=== PATIENT | male | born 1950 | race Caucasian/White ===

== ENCOUNTER 2020-07-22 13:22 | Emergency (ER) | payer OTHER ==
[~2020-07-22] VITALS: Ht 188 cm; Wt 113.4 kg
[~2020-07-22 13:22] MED LIST: ASPI81CH PO; ATOR40TA PO; BASAGLAR K100 UNIT/1 SC; CARV25 PO; CEFD300 PO; Cardura Xl8 MG PO; DULOXETINE HCL60 M1 PO; FURO20 PO; GEMF600 PO; HYDR10 PO; INSULANPEN SC; LOSA50 PO; OMEP20ER PO
[2020-07-22 13:59] LABS: BASOPHILS ABSOLUTE AUTO 0.06 K/mm3 (0.00-0.23); BASOPHILS PERCENT AUTO 1 % (0-2); EOSINOPHILS ABSOLUTE AUTO 0.63 K/mm3 (0.00-0.68); EOSINOPHILS PERCENT AUTO 6 % (0-6); IMMATURE GRAN ABSOLUTE AUTO 0.05 K/mm3 (0.00-0.10); IMMATURE GRAN PERCENT AUTO 1 % (0-1); LYMPHOCYTES ABSOLUTE AUTO 2.68 K/mm3 (0.84-5.20); LYMPHOCYTES PERCENT AUTO 25 % (21-46); MONOCYTES ABSOLUTE AUTO 0.63 K/mm3 (0.16-1.47); MONOCYTES PERCENT AUTO 6 % (4-13); Mean Corpuscular HGB 29.8 pg (26.0-34.0); Mean Corpuscular HGB Conc 34.2 g/dL (31.5-36.5); Mean Corpuscular Volume 87 fL (80-100); Mean Platelet Volume 11.1 fL (9.1-12.4); NEUTROPHILS ABSOLUTE AUTO 6.53 K/mm3 (1.96-9.15); NEUTROPHILS PERCENT AUTO 62 % (41-73); Platelet Count 262 K/mm3 (150-400); RDW Coefficient Variation 12.9 % (11.7-14.2); RDW Standard Deviation 40.9 fL (35.1-46.3); Red Blood Cell Count 4.36 M/mm3 (4.30-5.90); White Blood Cell Count 10.58 K/mm3 (4.00-11.30)
[2020-07-22 14:34] LABS: Albumin, Blood 3.4 g/dL (3.4-5.0); Albumin/Globulin Ratio 0.9 (0.8-1.8); Bilirubin, Total 0.5 mg/dL (0.1-1.0); Bun/Creatinine Ratio 18.2 (12.0-20.0); Calcium, Blood 9.3 mg/dL (8.5-10.1); Creatinine, Blood 1.43 mg/dL (0.60-1.20); Globulin, Blood 3.9 g/dL (2.2-4.0); Potassium, Blood 4.4 mmol/L (3.5-5.5); Total Protein, Blood 7.3 g/dL (6.4-8.2); Troponin I 0.044 ng/mL (0.000-0.040)
[2020-07-22 16:51] LABS: Source, Urine Clean Catch
[2020-07-22 16:54] LABS: Appearance, Urine Clear (Clear); Bilirubin, Urine Neg (Neg); Blood, Urine Neg (Neg); Color, Urine Yellow (P-Yellow); Glucose Qualitative, Urine 4+ (Neg); Ketones, Urine Neg (Neg); Leukocyte Esterase, Urine Neg (Neg); Nitrite, Urine Neg (Neg); Protein, Urine 2+ (Neg); Urobilinogen, Urine NORM (Normal)
[2020-07-22 17:14] LABS: Bacteria Not Seen /hpf; Red Blood Cells, Urine Not Seen /hpf (0-2); Squamous Epithelial Cells Few /hpf (Few); White Blood Cells, Urine Not Seen /hpf (0-5)
[2020-07-22 17:31] LABS: Base Excess Venous 7.4 mmol/L; Bicarbonate Venous 28.7 mmol/L (24.0-30.0); PCO2 Venous 60.9 mmHg (38-42); PO2 Venous 39.7 mmHg (38-42); pH Blood Venous 7.34 (7.34-7.37)
[2020-07-22] MEDS ORDERED: NOVOLOG FL100 UNIT/3 SC (18:08)
== END 2020-07-22 19:05 | disposition home or self-care (01) ==
LOC: ER 13:22
PROVIDERS: Physician Assistant
DX: E11.65 Type 2 diabetes mellitus with hyperglycemia (principal); E11.22 Type 2 diabetes mellitus with diabetic chronic kidney disease; I12.9 Hypertensive chronic kidney disease with stage 1 through stage 4 chronic kidney disease, or unspecified chronic kidney disease; N18.9 Chronic kidney disease, unspecified; I25.10 Atherosclerotic heart disease of native coronary artery without angina pectoris; Z88.0 Allergy status to penicillin; Z88.8 Allergy status to other drugs, medicaments and biological substances; Z88.1 Allergy status to other antibiotic agents; Z79.4 Long term (current) use of insulin; Z79.899 Other long term (current) drug therapy; Z87.891 Personal history of nicotine dependence
CPT/HCPCS: 71046; 80053; 81001; 82803; 82947; 84484; 85025; 93005; 93010; 99285-25; J1815

== ENCOUNTER 2022-01-26 00:55 | Day surgery (SDC) | payer MEDICARE ==
[~2022-01-26 00:55] MED LIST changes: +NOVOLOG FL100 UNIT/3 SC
== END 2022-01-26 22:56 | disposition home or self-care (01) ==
LOC: WOUND 00:55
DX: E11.621 Type 2 diabetes mellitus with foot ulcer (principal); L97.512 Non-pressure chronic ulcer of other part of right foot with fat layer exposed; L89.893 Pressure ulcer of other site, stage 3; N18.9 Chronic kidney disease, unspecified; E11.22 Type 2 diabetes mellitus with diabetic chronic kidney disease; E11.59 Type 2 diabetes mellitus with other circulatory complications; E11.42 Type 2 diabetes mellitus with diabetic polyneuropathy; Z79.4 Long term (current) use of insulin
CPT/HCPCS: A9270

== ENCOUNTER 2022-02-26 01:47 | Day surgery (SDC) | payer MEDICARE | END 2022-02-26 22:53 | disposition home or self-care (01) | LOC: WOUND 01:47 | DX: E11.621 Type 2 diabetes mellitus with foot ulcer (principal); L97.512 Non-pressure chronic ulcer of other part of right foot with fat layer exposed; L89.893 Pressure ulcer of other site, stage 3; E11.59 Type 2 diabetes mellitus with other circulatory complications; E11.42 Type 2 diabetes mellitus with diabetic polyneuropathy; E11.22 Type 2 diabetes mellitus with diabetic chronic kidney disease; N18.9 Chronic kidney disease, unspecified; Z79.4 Long term (current) use of insulin | CPT/HCPCS: G0463 ==

== ENCOUNTER 2022-03-06 09:28 | Day surgery (SDC) | payer MEDICARE | END 2022-03-06 22:40 | disposition home or self-care (01) | LOC: WOUND 09:28 | DX: E11.621 Type 2 diabetes mellitus with foot ulcer (principal); L97.512 Non-pressure chronic ulcer of other part of right foot with fat layer exposed; E11.42 Type 2 diabetes mellitus with diabetic polyneuropathy; L89.893 Pressure ulcer of other site, stage 3; E11.22 Type 2 diabetes mellitus with diabetic chronic kidney disease; N18.9 Chronic kidney disease, unspecified; E11.59 Type 2 diabetes mellitus with other circulatory complications; Z79.4 Long term (current) use of insulin ==

== ENCOUNTER 2022-03-12 02:44 | Day surgery (SDC) | payer MEDICARE | END 2022-03-12 23:15 | disposition home or self-care (01) | LOC: WOUND 02:44 | DX: E11.621 Type 2 diabetes mellitus with foot ulcer (principal); L97.512 Non-pressure chronic ulcer of other part of right foot with fat layer exposed; L89.893 Pressure ulcer of other site, stage 3; E11.42 Type 2 diabetes mellitus with diabetic polyneuropathy; E11.59 Type 2 diabetes mellitus with other circulatory complications; N18.9 Chronic kidney disease, unspecified; E11.22 Type 2 diabetes mellitus with diabetic chronic kidney disease; Z79.4 Long term (current) use of insulin | CPT/HCPCS: G0463 ==

== ENCOUNTER 2022-04-03 04:00 | Day surgery (SDC) | payer MEDICARE ==
[2022-04-06] MEDS ORDERED: METFORMIN HCL500 M2 PO (14:17)
[2022-04-06] MEDS ORDERED: OZEMPIC1 MG/0.72 SQ (14:17)
[2022-04-06] MEDS ORDERED: FENOFIBRATE145 MG PO (14:17)
[2022-04-07] MEDS ORDERED: Isosorbide Mono30 MG PO (10:34)
== END 2022-04-03 23:03 | disposition home or self-care (01) ==
LOC: WOUND 04:00
DX: E11.621 Type 2 diabetes mellitus with foot ulcer (principal); L97.512 Non-pressure chronic ulcer of other part of right foot with fat layer exposed; E11.42 Type 2 diabetes mellitus with diabetic polyneuropathy; L89.893 Pressure ulcer of other site, stage 3; E11.22 Type 2 diabetes mellitus with diabetic chronic kidney disease; N18.9 Chronic kidney disease, unspecified; E11.59 Type 2 diabetes mellitus with other circulatory complications; Z79.4 Long term (current) use of insulin

== ENCOUNTER 2022-04-24 12:17 | Day surgery (SDC) | payer MEDICARE ==
[~2022-04-24 12:17] MED LIST changes: +FENOFIBRATE145 MG PO; +Isosorbide Mono30 MG PO; +METFORMIN HCL500 M2 PO; +OZEMPIC1 MG/0.72 SQ
== END 2022-04-24 22:55 | disposition home or self-care (01) ==
LOC: WOUND 12:17
DX: L89.893 Pressure ulcer of other site, stage 3 (principal); E11.621 Type 2 diabetes mellitus with foot ulcer; E11.42 Type 2 diabetes mellitus with diabetic polyneuropathy; Z79.4 Long term (current) use of insulin; E11.22 Type 2 diabetes mellitus with diabetic chronic kidney disease; N18.9 Chronic kidney disease, unspecified
CPT/HCPCS: G0463

== ENCOUNTER 2022-05-08 02:55 | Day surgery (SDC) | payer MEDICARE | END 2022-05-08 22:59 | disposition home or self-care (01) | LOC: WOUND 02:55 | DX: E11.621 Type 2 diabetes mellitus with foot ulcer (principal); L97.512 Non-pressure chronic ulcer of other part of right foot with fat layer exposed; I87.2 Venous insufficiency (chronic) (peripheral); Z79.4 Long term (current) use of insulin; N18.9 Chronic kidney disease, unspecified; E11.22 Type 2 diabetes mellitus with diabetic chronic kidney disease | CPT/HCPCS: A9270; G0463 ==

== ENCOUNTER 2022-05-15 02:07 | Day surgery (SDC) | payer MEDICARE | END 2022-05-15 22:41 | disposition home or self-care (01) | LOC: WOUND 02:07 | DX: E11.621 Type 2 diabetes mellitus with foot ulcer (principal); L97.512 Non-pressure chronic ulcer of other part of right foot with fat layer exposed; E11.40 Type 2 diabetes mellitus with diabetic neuropathy, unspecified; Z79.4 Long term (current) use of insulin; E11.22 Type 2 diabetes mellitus with diabetic chronic kidney disease; N18.9 Chronic kidney disease, unspecified | CPT/HCPCS: G0463 ==

== ENCOUNTER 2022-05-29 01:25 | Day surgery (SDC) | payer MEDICARE | END 2022-05-29 22:34 | disposition home or self-care (01) | LOC: WOUND 01:25 | DX: E11.621 Type 2 diabetes mellitus with foot ulcer (principal); E11.42 Type 2 diabetes mellitus with diabetic polyneuropathy; Z79.4 Long term (current) use of insulin; N18.9 Chronic kidney disease, unspecified; E11.22 Type 2 diabetes mellitus with diabetic chronic kidney disease; L97.512 Non-pressure chronic ulcer of other part of right foot with fat layer exposed | CPT/HCPCS: A9270; G0463 ==

== ENCOUNTER 2022-06-12 01:23 | Day surgery (SDC) | payer MEDICARE | END 2022-06-12 22:42 | disposition home or self-care (01) | LOC: WOUND 01:23 | DX: E11.621 Type 2 diabetes mellitus with foot ulcer (principal); L03.032 Cellulitis of left toe; S91.205A Unspecified open wound of left lesser toe(s) with damage to nail, initial encounter; E11.22 Type 2 diabetes mellitus with diabetic chronic kidney disease; N18.9 Chronic kidney disease, unspecified; E11.59 Type 2 diabetes mellitus with other circulatory complications | CPT/HCPCS: A9270 ==

== ENCOUNTER 2022-07-23 13:39 | Inpatient (IN) | payer MEDICARE, OTHER ==
[~2022-07-23] VITALS: Ht 188 cm; Wt 106.1 kg
[~2022-07-23 13:39] MED LIST changes: -ASPI81CH PO; +Aspir 8181 MG PO; -CARV25 PO; +Carvedilol12.5 MG PO; +METF500 PO; -METFORMIN HCL500 M2 PO
[2022-07-23 14:05] LABS: Calcium, Ionized (POC) 1.21 mmol/L (1.10-1.46); Chloride (POC) 99 mmol/L (98-108); Creatinine (POC) 1.5 mg/dL (0.8-1.3); Glucose (ISTAT POC) 353 mg/dL (70-99); Hemoglobin (POC) 13.9 g/dL (13.5-17.5); Potassium (POC) 4.7 mmol/L (3.5-5.5); Sodium (POC) 134 mmol/L (135-148); Total CO2 (POC) 25 mmol/L (21-32)
[2022-07-23 14:17] LABS: Albumin, Blood 3.3 g/dL (3.4-5.0); Albumin/Globulin Ratio 0.9 (0.8-1.8); Bilirubin, Total 0.5 mg/dL (0.1-1.0); Bun/Creatinine Ratio 18.7 (12.0-20.0); Calcium, Blood 9.3 mg/dL (8.5-10.1); Creatinine, Blood 1.39 mg/dL (0.60-1.20); Globulin, Blood 3.7 g/dL (2.2-4.0); Magnesium, Blood 2.3 mg/dL (1.6-2.4); Potassium, Blood 4.8 mmol/L (3.5-5.5)
[2022-07-23 14:33] LABS: BASOPHILS ABSOLUTE AUTO 0.12 K/mm3 (0.00-0.23); BASOPHILS PERCENT AUTO 1 % (0-2); EOSINOPHILS ABSOLUTE AUTO 0.69 K/mm3 (0.00-0.68); EOSINOPHILS PERCENT AUTO 8 % (0-6); Hematocrit 41.4 % (37.0-53.0); Hemoglobin 13.8 g/dL (13.5-17.5); IMMATURE GRAN ABSOLUTE AUTO 0.05 K/mm3 (0.00-0.10); IMMATURE GRAN PERCENT AUTO 1 % (0-1); LYMPHOCYTES ABSOLUTE AUTO 1.61 K/mm3 (0.84-5.20); LYMPHOCYTES PERCENT AUTO 18 % (21-46); MONOCYTES ABSOLUTE AUTO 0.57 K/mm3 (0.16-1.47); MONOCYTES PERCENT AUTO 6 % (4-13); Mean Corpuscular HGB 28.6 pg (26.0-34.0); Mean Corpuscular HGB Conc 33.3 g/dL (31.5-36.5); Mean Corpuscular Volume 86 fL (80-100); Mean Platelet Volume 11.4 fL (9.1-12.4); NEUTROPHILS ABSOLUTE AUTO 6.04 K/mm3 (1.96-9.15); NEUTROPHILS PERCENT AUTO 67 % (41-73); Platelet Count 268 K/mm3 (150-400); RDW Coefficient Variation 14.1 % (11.7-14.2); Red Blood Cell Count 4.82 M/mm3 (4.30-5.90); White Blood Cell Count 9.08 K/mm3 (4.00-11.30)
[2022-07-23 17:21] LABS: International Normalized Ratio 1.01; Prothrombin Time Results 10.6 Sec (9.7-11.5)
--- NOTE | 2022-07-23 18:40 | NUR ---
ADMIT NOTE PT TO ROOM AT APPROX 1706, 2 PERSON SBA TRANSFER TO BED. PT AND FAMILY ORIENTED TO ROOM AND CALL LIGHT. EDUCATED ON FALL RISK AND CALLING FOR ASSISTANCE. PT ALERT, ORIENTED TO x3, UNSURE OF DATE/TIME; CALM AND COOPERATIVE WITH CARE. PT FORGETFUL, FAMILY AT BEDSIDE STATES HE IS THE SAME AT HOME. PT DENIES PAIN, CHEST PAIN/PRESSURE, SOB, NASUEA, DIZZINESS AND NUMB/TINGLING. ORTHO STATIC VS COMPLETED. 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 CALLED DR GERONIMO REGARDING CBG 446, NO NEW ORDER CONTINUES WITH ORDERED INSULIN; TROP 65, NEW ORDERS TO D/C HEPARIN. SPO2>90% ON RA, BREATHING EVEN AND UNLABORED, PT NONCOMPLIANT AT HOME WITH CPAP, BELEIVES TO BE BROKEN. ABD SOFT NONTENDER, +BT X4 QUAD. SOFT, BROWN BM NOTED. SKIN WNL. OTHER VSS. NO ACUTE CHANGES NOTED. PT NPO AT MIDNIGHT, NO CAFFEINE OR NITRO AFTER 1900 FOR STRESS TEST TOMORROW.
[2022-07-23 19:51] LABS: Creatine Kinase MB 1.3 ng/mL (0.0-3.6); Creatine Kinase MB Index 2.7 (0.0-4.0)
[2022-07-23] MEDS ORDERED: KETO.5OPSO BOTHEYES (21:53)
[2022-07-23] MEDS ORDERED: Floxin10 ML BOTHEYES (21:55)
[2022-07-23] MEDS ORDERED: PRED FORTE5 ML BOTHEYES (21:56)
[2022-07-23] MEDS ORDERED: INSULANPEN SC (22:03)
[2022-07-23] MEDS ORDERED: NOVOLOG FL100 UNIT/3 SC (22:07)
[2022-07-23] MEDS ORDERED: THERA-D2000 UNIT PO (22:10)
[2022-07-23] MEDS ORDERED: LOSA50 PO (22:20)
[2022-07-23] MEDS ORDERED: GABA300 PO (22:22)
--- NOTE | 2022-07-24 01:24 | NUR ---
PHYSICIAN COMMUNICATION CONTACTED PHARMACY INTAKE TECHNICIAN RESIDENT, DR SANCHEZ, TO NOTIFY HER THAT THE PATIENT'S MOST RECENT BLOOD PRESSURE WAS 171/72 AND WAS PREVIOUSLY IN THE 160'S SYSTOLIC. NOTIFIED HER THAT THE PATIENT HASN'T BEEN STARTED ON ANTIHYPERTENSIVES DURING THIS HOSPITAL COURSE AND RELAYED WHAT HIS HOME MEDICATIONS WERE. DR SANCHEZ ORDERED 10-20 MG IV HYDRALAZINE EVERY 6 HOURS NEEDED FOR SBP GREATER THAN 170.
[2022-07-24 01:59] LABS: Hematocrit 38.8 % (37.0-53.0); Hemoglobin 13.4 g/dL (13.5-17.5); Mean Corpuscular HGB 28.9 pg (26.0-34.0); Mean Corpuscular HGB Conc 34.5 g/dL (31.5-36.5); Mean Corpuscular Volume 84 fL (80-100); Platelet Count 228 K/mm3 (150-400); RDW Coefficient Variation 14.2 % (11.7-14.2); Red Blood Cell Count 4.63 M/mm3 (4.30-5.90); White Blood Cell Count 8.96 K/mm3 (4.00-11.30)
[2022-07-24 02:13] LABS: Anion Gap 4 mmol/L (6-16); Blood Urea Nitrogen 26 mg/dL (8-24); Bun/Creatinine Ratio 19.5 (12.0-20.0); CHOL/HDL RATIO 3.3; CO2, Blood 30 mmol/L (21-32); CPK Creatine Kinase 60 U/L (39-308); Calcium, Blood 9.3 mg/dL (8.5-10.1); Chloride, Blood 106 mmol/L (98-108); Cholesterol 133 mg/dL (50-200); Creatine Kinase MB 1.5 ng/mL (0.0-3.6); Creatine Kinase MB Index 2.5 (0.0-4.0); Creatinine, Blood 1.33 mg/dL (0.60-1.20); Glomerular Filtration Rate 56 (60-); Glucose, Blood 139 mg/dL (70-99); HDL Cholesterol 40 mg/dL (>39); LDL/HDL RATIO 1.7; Low Density Lipoprotein Chol 70 mg/dL (0-110); Magnesium, Blood 2.1 mg/dL (1.6-2.4); Phosphorus, Blood 3.7 mg/dL (2.5-4.9); Potassium, Blood 3.8 mmol/L (3.5-5.5); Sodium, Blood 140 mmol/L (136-145); Triglycerides 117 mg/dL (30-160); Very Low Density Lipoprot Chol 23 mg/dL (6-32)
--- NOTE | 2022-07-24 06:33 | NUR ---
SHIFT SUMMARY PATIENT ALERT AND ORIENTED X2-3. FORGETFUL, PLEASANTLY CONFUSED, AND REDIRECTABLE. PATIENT HAD NO COMPLAINTS OF PAIN OR SHORTNESS OF BREATH. VITAL SIGNS STABLE. LUNG SOUNDS CLEAR. PATIENT SINUS RHYTHM ON TELE. SPO2 >90% ON ROOM AIR. NO ACUTE ISSUES NOTED OVERNIGHT. CALL LIGHT WITHIN REACH.
--- NOTE | 2022-07-24 07:57 | NUR ---
AM NOTE PT ALERT, ORIENTED X3; UNSURE OF DATE. PT HAD AN EPISODE OF CONFUSION THIS AM, ATTEMPTING TO GET OUT OF BED, STATING HE WAS GOING HOME, REORIENTED EASILY. PT UP WITH 1 PERSON ASSIST AND WALKER. PT DENIES PAIN, CHEST PAIN/PRESSURE, SOB, NASUEA, AND NUMB/TINGLING. ORTHO VS COMPLETED, PT DIZZY WITH INITIALLY SITTING UP AND STANDING, THEN DIZZY WITH RETIREMENT STANDING AND NEEDING TO SIT DOWN, BP DROPPED FROM 140'S SYSTOLIC TO 90'S WHILE STANDING. TELE SINUS 60-80'S. SPO2 >90% ON RA, BREATHING EVEN AND UNLABORED. ABD SOFT, NONTENDER. PT REQUESTING HAND IV TO BE TAKEN OUT, PLACED NEW ONE. OTHER VSS. NO OTHER ACUTE CHANGES NOTED. WILL CONTINUE TO MONITOR.
--- NOTE | 2022-07-24 18:24 | NUR ---
Shift Summary No acute changes t/o shift, pt completed stress test this afternoon. New cardiology consult called in . Vss. No other acute changes noted. Will continue to monitor.
--- NOTE | 2022-07-25 04:48 | NUR ---
SHIFT SUMMARY A&Ox2-3, PT KNOWS HE IS IN [place] BUT UNSURE OF WHICH BUILDING. BP ELEVATED, MANAGED PER EMAR, SINUS 70's, DENIES CP/PRESSURE. SpO2> 92% RA, DENIES SOB. PT 1 PERSON ASSIST WITH FWW TO BATHROOM. CONTINENT OF URINE, NO BM THIS SHIFT. PT RESTED COMFORTABLY THROUGHOUT SHIFT. NO OTHER EVENTS, WILL REPORT TO COMING RN.
--- NOTE | 2022-07-25 17:59 | NUR ---
SHIFT SUMMARY; ASSUMED CARE AT 0700, A/A/OX3 WITH INTERMITANT CONFUSION. REPOSITIONS SELF IN BED, SBA TO BATHROOM IN AM PRE PROCEDURE. ANGIO TODAY, TR BAND TO LEFT WRIST. REMOVED BAND PER PROTOCOL. RADIAL PALPABLE WITH CAP REFILL <3 SECS DURING TR BAND RECOVERY. LEFT ARM BOARD IN PLACE. HYPTENSIVE IN AM, MEDICATED PER DR. TONG. USING URINAL AT BEDSIDE AFTER ANGIO WITH ASSISTANCE. CONFUSION INCREASED IN EVENING, DIFFICULT AT TIMES TO REDIRECT. STATES IS SAME AT HOME IN EVENING AND HAS SHOWN RECENT SIGNS OF DEMENTIA. INSULIN HELD DURING SHIFT PT HAS BEEN NPO T/O DAY. MEAL OFFERED TONIGHT AND DECLINED. VSS, WILL CONTINUE TO MONITOR AND TREAT UNTIL CHANGE OF SHIFT.
--- NOTE | 2022-07-26 07:31 | NUR ---
SHIFT SUMMARY A&Ox2, AT START OF SHIFT PT SET BED ALARM OFF TO USE BATHROOM, PT ABLE TO STATE WHAT HE WAS IN [place], THOUGH WAS DIFFICULT TO DIRECT WHEN WALKING TO BATHROOM. SHIFT PROGRESSED, PT BECAME INCREASINGLY LETHARGIC AND NOT FOLLOWING DIRECTIONS. PHYSICIAN NOTIFIED, ORDERS PLACE. PUPILS EQUAL AND REACTIVE TO LIGHT. BP ELEVATED, PHYSICIAN NOTIFIED, ORDERS PLACED, MANAGED PER EMAR, SINUS 90-100's, DENIES CP/PRESSURE. SpO2> 92% RA, DENIES SOB. PT INCONTINENT OF URINE, NO BM THIS SHIFT. NO OTHER EVENTS, WILL REPORT TO COMING RN.
--- NOTE | 2022-07-26 12:45 | NUR ---
PTS DAUGHTER AT BEDSIDE AND WAS ASKING FOR A PILLOW TO PUT BETWEEN HER FATHER KNEES. I GOT A PILLOW AND ASSISTED HER WITH THIS. UPON GETTING CLOSER TO PTS FACE, IT WAS NOTED THAT HE NEEDED ORAL CARE A CRUST HAD BUILT UP ON HIS TONGUE AND HIS DAUGHTER MENTIONED A FOUL ODOR COMING FROM HIS MOUTH. I SET UP SUCTION AND CLEANED HIS MOUTH MULTIPLE TIMES WITH SUCTION SWABS, AND MOUTH MOISTURIZER. PTS FAMILY VERY GRATEFUL AND MENTIONED PT LOOKS MUCH MORE COMFORTABLE. THIS WILL BE PASSED ON TO PTS PRIMARY RN AND CARDIOTHORACIC ICU RN
[2022-07-26 13:49] LABS: BASOPHILS ABSOLUTE AUTO 0.03 K/mm3 (0.00-0.23); BASOPHILS PERCENT AUTO 0 % (0-2); EOSINOPHILS PERCENT AUTO 0 % (0-6); Hematocrit 38.7 % (37.0-53.0); Hemoglobin 13.6 g/dL (13.5-17.5); IMMATURE GRAN ABSOLUTE AUTO 0.04 K/mm3 (0.00-0.10); IMMATURE GRAN PERCENT AUTO 0 % (0-1); LYMPHOCYTES PERCENT AUTO 13 % (21-46); MONOCYTES ABSOLUTE AUTO 0.92 K/mm3 (0.16-1.47); MONOCYTES PERCENT AUTO 7 % (4-13); Mean Corpuscular HGB 28.9 pg (26.0-34.0); Mean Corpuscular HGB Conc 35.1 g/dL (31.5-36.5); Mean Corpuscular Volume 82 fL (80-100); Mean Platelet Volume 10.7 fL (9.1-12.4); NEUTROPHILS ABSOLUTE AUTO 9.83 K/mm3 (1.96-9.15); NEUTROPHILS PERCENT AUTO 79 % (41-73); Platelet Count 302 K/mm3 (150-400); RDW Coefficient Variation 14.5 % (11.7-14.2); RDW Standard Deviation 43.1 fL (35.1-46.3); White Blood Cell Count 12.42 K/mm3 (4.00-11.30)
[2022-07-26 16:45] LABS: PCO2 Arterial 34.9 mmHg (35-45); PO2 Arterial 75.3 mmHg (80-100); pH Blood Arterial 7.47 (7.35-7.45)
[2022-07-26 17:17] LABS: Albumin, Blood 3.3 g/dL (3.4-5.0); Anion Gap 10 mmol/L (6-16); Blood Urea Nitrogen 18 mg/dL (8-24); CO2, Blood 21 mmol/L (21-32); Calcium, Blood 9.2 mg/dL (8.5-10.1); Chloride, Blood 104 mmol/L (98-108); Creatinine, Blood 1.06 mg/dL (0.60-1.20); Glomerular Filtration Rate 74 (60-); Glucose, Blood 255 mg/dL (70-99); Phosphorus, Blood 3.3 mg/dL (2.5-4.9); Potassium, Blood 4.1 mmol/L (3.5-5.5); Sodium, Blood 135 mmol/L (136-145)
--- NOTE | 2022-07-26 18:05 | NUR ---
SHIFT SUMMARY; ASSUMED CARE AT 0700. LETHARGIC AND SLEEPING T/O SHIFT. DIFFICULT TO WAKE. OPENS EYES TO VERBAL STIMULI BUT DOES NOT ANSWER QUESTIONS AND QUICKLY FALLS BACK ASLEEP. REPOSITIONS SELF IN BED. INCONTINANT DURING SHIFT SEVERAL TIMES WITH TJ CARE AND ATTENDS CHANGES PROVIDED. LEFT ARM BOARD IN PLACE FROM ANGIO YESTERDAY. SITE DRY AND NO SWELLING OR BRUISING, TEGADERM IN PLACE. INSULIN PER EMAR. FAMILY AT BEDSIDE MOST OF DAY, CONCERNED REGARDING CHANGE IN MENTATION FROM BASELINE. DR. GERONIMO SPOKE WITH FAMILY. MRI ORDERED. MRI SCREENING FAXED TO RADIOLOGY. NS INFUSING AT 100ML/HR PER ORDERS, WILL CONTINUE TO MONITOR AND TREAT UNTIL CHANGE OF SHIFT.
[2022-07-26 19:03] LABS: Source, Urine Clean Catch
[2022-07-26 19:06] LABS: Appearance, Urine Clear (Clear); Bilirubin, Urine Neg (Neg); Blood, Urine 2+ (Neg); Color, Urine Yellow (P-Yellow); Glucose Qualitative, Urine 4+ (Neg); Ketones, Urine 2+ (Neg); Leukocyte Esterase, Urine Neg (Neg); Nitrite, Urine Neg (Neg); Protein, Urine 3+ (Neg); Urobilinogen, Urine NORM (Normal)
[2022-07-26 19:49] LABS: Bacteria Few /hpf; Squamous Epithelial Cells Rare /hpf (Few); White Blood Cells, Urine 0-2 /hpf (0-5)
--- NOTE | 2022-07-26 20:00 | NUR ---
ASSUMED CARE. PT OPENS EYES TO VERBAL STIMULI, DOES NOT ANSWER ANY ORIENTATION QUESTIONS. JUST SAYS YES AND NO TO PAIN QUESTION OR OTHER ASSESSMENT QUESTIONS. VERY FEW ANSWERS AND THEN FALLS BACK TO SLEEP. ALLOWS ASSESSMENT TO OCCUR THEN ASKED TO BE LEFT ALONE. LS CLEAR, SATS >90%. UNKNOWN IF HE HAS CHEST PAIN, WOULD NOT ANSWER. HR NORMAL S1-S2. PULSES STRONG. CAP REFILL NORMAL. HR 70-80'S. CONDOM CATH IN PLACE, YELLOW URINE SMALL AMOUNT IN TUBING. ATTENDS DRY. ABD HYPOACTIVE CT. SKIN WITH DRY FLACKY SKIN, REDNESS TO COCCYX, BLANCHABLE. BED ALARM IS ON, LOUISA IN PLACE.
--- NOTE | 2022-07-26 22:46 | NUR ---
PT PULLED OFF CONDOM CATH. ATTENDS WET AND BED HAD SMALL AREA OF WETNESS, PATIENT WAS DIFFICULT TO GET TO FOLLOW COMMANDS, WOULD NOT ALLOW SHEET TO BE CHANGED. CONTINUED TO YELL OUT "LEAVE ME ALONE", FINALLY GOT HIM TO ALLOW ME TO PLACE CLEAN ATTENDS AND PAD UNDERNEATH HIM SO HE WOULD NOT BE LAYING ON WETNESS. BOOSTED IN BED. LOUISA IN PLACE.
[2022-07-27 04:47] LABS: Hematocrit 37.6 % (37.0-53.0); Hemoglobin 12.8 g/dL (13.5-17.5); Mean Corpuscular HGB 28.8 pg (26.0-34.0); Mean Corpuscular Volume 85 fL (80-100); Mean Platelet Volume 10.9 fL (9.1-12.4); Platelet Count 254 K/mm3 (150-400); RDW Coefficient Variation 14.5 % (11.7-14.2); RDW Standard Deviation 44.7 fL (35.1-46.3); Red Blood Cell Count 4.44 M/mm3 (4.30-5.90); White Blood Cell Count 11.39 K/mm3 (4.00-11.30)
[2022-07-27 05:34] LABS: Albumin, Blood 2.9 g/dL (3.4-5.0); Anion Gap 4 mmol/L (6-16); Blood Urea Nitrogen 26 mg/dL (8-24); Bun/Creatinine Ratio 21.5 (12.0-20.0); CO2, Blood 26 mmol/L (21-32); Chloride, Blood 109 mmol/L (98-108); Creatinine, Blood 1.21 mg/dL (0.60-1.20); Glomerular Filtration Rate 63 (60-); Glucose, Blood 192 mg/dL (70-99); Phosphorus, Blood 2.7 mg/dL (2.5-4.9); Potassium, Blood 3.4 mmol/L (3.5-5.5); Sodium, Blood 139 mmol/L (136-145)
--- NOTE | 2022-07-27 05:59 | NUR ---
SHIFT SUMMARY: PT REMAINS LETHARGIC, WILL OPEN EYES TO VERBAL STIMULI BUT TENDS TO FALL BACK TO SLEEP. DOES NOT LIKE TO BE MESSED WITH, WILL YELL OUT "LEAVE ME ALONE", GETS VERY IRRITABLE. REMAINS IN LOUISA VEST FOR SAFETY. IVF COMPLETED. POTASSIUM SLIGHTLY LOW THIS AM 3.4, REPORTED TO DR. SANCHEZ, NO ORDERS OBTAINED. VS REMAINED WNL. BED ALARM ON, AND CALL LIGHT IS IN REACH.
--- NOTE | 2022-07-27 18:15 | NUR ---
SHIFT SUMMARY PT A/Ox2-3 AND COOPERATIVE OF CARE. PT LETHARGIC AT SHIFT CHANGE WITH DAUGHTER PRESENT IN ROOM. LOUISA JOHNSTON DC'D AT SHIFT CHANGE. PT ANWERED SOME ORIENTATION QUESTION IF DAUGHTER REPEATED THEM TO PT DURING MORNING ASSESSMENT. AROUND 0900, PT RECIEVED FULL BED BATH WHICH SEEMED TO MAKE PT MORE ALERT. AFTER BED BATH PT ABLE TO ANSWER SOME ORIENTATION QUESTIONS APPROPIATELY, SOME OF THE QUESTIONS THE PT PAUSED FOR 15-20 SECONDS BEFORE BEING ABLE TO ANSWER THE QUESTION. PT VSS THROUGHOUT SHIFT WITH 02 SATS >97% ON RA. NO REPORT OF CHEST PAIN/PRESSURE THROUGHOUT SHIFT. NO REPORT OF SOB/DYSPNEA THROUGHOUT SHIFT. PT SEEN BY PT/OT, SEE PT/OT ASSESSMENT NOTES. PT DID SET OF BED ALARM ONCE HE WAS TRYING TO CLIMB OUT OF BE TO "GO TO THE BATHROOM." PT REMINDED THAT HE IS A FALL RISK AND STAFF HELPED PT USE URINAL IN THE BED. CARE MANAGEMENT ON BOARD FOR HOME HEALTH ASSISTANCE AND [facility] WITH [facility].
--- NOTE | 2022-07-28 05:58 | NUR ---
PHOTO PRODUCER SUMMARY ASSUMED CARE OF THE PT AT 1900. HE WAS LETHARGIC AT THE START OF SHIFT, UNABLE TO PERFORM FULL ASSESSMENT PT NOT AWAKE LONG ENOUGH TO ANSWER QUESTIONS. PT DOES GET UP ONCE DURING THE NIGHT TO USE THE URINAL. ABLE TO STAND WITH WALKER WHILE STAFF ASSIST WITH URINAL. VSS. PT APPEARS MORE ALERT THIS MORNING BUT STILL DOES NOT KNOW WHERE HE IS, WHAT MONTH OR YEAR IT IS, AND HIS FULL BIRTHDATE. PT VERY PLEASANT. NO CHEST PAIN OR SHORTNESS OF BREATH THIS SHIFT. POSSIBLE DISCHARGE HOME TODAY.
[2022-07-28 07:54] LABS: Albumin, Blood 2.7 g/dL (3.4-5.0); Anion Gap 6 mmol/L (6-16); Blood Urea Nitrogen 26 mg/dL (8-24); Bun/Creatinine Ratio 21.7 (12.0-20.0); CO2, Blood 25 mmol/L (21-32); Calcium, Blood 8.8 mg/dL (8.5-10.1); Chloride, Blood 111 mmol/L (98-108); Glomerular Filtration Rate 63 (60-); Glucose, Blood 137 mg/dL (70-99); Potassium, Blood 3.7 mmol/L (3.5-5.5); Sodium, Blood 142 mmol/L (136-145)
[2022-07-28 08:29] LABS: BASOPHILS ABSOLUTE AUTO 0.09 K/mm3 (0.00-0.23); BASOPHILS PERCENT AUTO 1 % (0-2); EOSINOPHILS ABSOLUTE AUTO 0.34 K/mm3 (0.00-0.68); EOSINOPHILS PERCENT AUTO 4 % (0-6); Hematocrit 38.9 % (37.0-53.0); Hemoglobin 13.1 g/dL (13.5-17.5); IMMATURE GRAN ABSOLUTE AUTO 0.02 K/mm3 (0.00-0.10); IMMATURE GRAN PERCENT AUTO 0 % (0-1); LYMPHOCYTES PERCENT AUTO 26 % (21-46); MONOCYTES ABSOLUTE AUTO 0.88 K/mm3 (0.16-1.47); MONOCYTES PERCENT AUTO 10 % (4-13); Mean Corpuscular HGB Conc 33.7 g/dL (31.5-36.5); Mean Corpuscular Volume 86 fL (80-100); Mean Platelet Volume 10.8 fL (9.1-12.4); NEUTROPHILS ABSOLUTE AUTO 5.12 K/mm3 (1.96-9.15); NEUTROPHILS PERCENT AUTO 59 % (41-73); Platelet Count 208 K/mm3 (150-400); RDW Coefficient Variation 14.6 % (11.7-14.2); RDW Standard Deviation 45.8 fL (35.1-46.3); Red Blood Cell Count 4.52 M/mm3 (4.30-5.90); White Blood Cell Count 8.75 K/mm3 (4.00-11.30)
--- NOTE | 2022-07-28 11:18 | NUR ---
ORTHOSTATIC BLOOD PRESSURES: PATIENT IN ACUTE DISTRESS. DENIES DIZZINESS/LIGHTHEADEDNESS. NO SYNCOPAL EPISODE. PATIENT WAS LAYING FOR MORE THAN 5 MINUTES. ON INTITIAL READ. [id number] LAY TO [id number] SIT TO [id number]
[2022-07-28] MEDS ORDERED: CLOP75 PO (11:56)
[2022-07-28] MEDS ORDERED: QUET25 PO (11:57)
[2022-07-28] MEDS ORDERED: MIRALAX17 GM PO (11:57)
--- NOTE | 2022-07-28 14:08 | NUR ---
DISCHARGE SUMMARY: PATIENT AND FAMILY PRESENT FOR DISCHARGE WITH APPROXIMATELY 45-60MINUTES OF EDUCATION ON MEDICATIONS CURRENT ILLNESS AND DISCHARGE INSTRUCTIONS. PATIENT AND FAMILY HAVE FIRM UNDERSTANDING OF THE SITUATION AND WILL CONTINUE MEDICATION PER MED REC. PATIENT IN NO SIGN OF DISTRESS, DENIES CHEST PAIN PRESSURE OR SOB AT THIS TIME. PATIENT AND FAMILY HAD NO FURTHER QUESTIONS AND UNDERSTOOD ALL INSTRUCTIONS. PATIENT WAS WHEELED OUT BY THIS RN. NO CONCERNS QUESTIONS OR COMMENTS.
== END 2022-07-28 13:15 | disposition home health service (06) | DRG 286 ==
LOC: ER 13:39 → PCU 13:40
PROVIDERS: Student in an Organized Health Care Education/Training Program; ADMIT Internal Medicine
PROC: B211YZZ Fluoroscopy of Multiple Coronary Arteries using Other Contrast (ICD-10-PCS; principal; 2022-07-25)
PROC: B218YZZ Fluoroscopy of Left Internal Mammary Bypass Graft using Other Contrast (ICD-10-PCS; 2022-07-25)
PROC: B21FYZZ Fluoroscopy of Other Bypass Graft using Other Contrast (ICD-10-PCS; 2022-07-25)
PROC: B240ZZ3 Ultrasonography of Single Coronary Artery, Intravascular (ICD-10-PCS; 2022-07-25)
PROC: 4A133R1 Monitoring of Arterial Saturation, Peripheral, Percutaneous Approach (ICD-10-PCS; 2022-07-25)
DX: I95.1 Orthostatic hypotension (principal); G92.8 Other toxic encephalopathy; E87.1 Hypo-osmolality and hyponatremia; N17.9 Acute kidney failure, unspecified; F03.918 Unspecified dementia, unspecified severity, with other behavioral disturbance; I25.10 Atherosclerotic heart disease of native coronary artery without angina pectoris; E87.6 Hypokalemia; N18.30 Chronic kidney disease, stage 3 unspecified; E11.22 Type 2 diabetes mellitus with diabetic chronic kidney disease; G47.33 Obstructive sleep apnea (adult) (pediatric); G47.00 Insomnia, unspecified; E78.5 Hyperlipidemia, unspecified; E11.42 Type 2 diabetes mellitus with diabetic polyneuropathy; I12.9 Hypertensive chronic kidney disease with stage 1 through stage 4 chronic kidney disease, or unspecified chronic kidney disease; K21.9 Gastro-esophageal reflux disease without esophagitis; L97.519 Non-pressure chronic ulcer of other part of right foot with unspecified severity; E11.621 Type 2 diabetes mellitus with foot ulcer; R94.39 Abnormal result of other cardiovascular function study; F80.9 Developmental disorder of speech and language, unspecified; Z91.199 Patient's noncompliance with other medical treatment and regimen due to unspecified reason; Z98.890 Other specified postprocedural states; Z87.891 Personal history of nicotine dependence; Z98.42 Cataract extraction status, left eye; Z98.41 Cataract extraction status, right eye; Z95.1 Presence of aortocoronary bypass graft; Z78.1 Physical restraint status; Z88.0 Allergy status to penicillin; Z88.1 Allergy status to other antibiotic agents; Z88.2 Allergy status to sulfonamides; Z88.8 Allergy status to other drugs, medicaments and biological substances; Z79.899 Other long term (current) drug therapy; Z79.01 Long term (current) use of anticoagulants; Z79.4 Long term (current) use of insulin; Z79.82 Long term (current) use of aspirin; Z79.02 Long term (current) use of antithrombotics/antiplatelets; Z79.84 Long term (current) use of oral hypoglycemic drugs
CPT/HCPCS: 36415; 36600; 70450; 76937; 78452; 80047; 80048; 80053; 80061; 80069; 81001; 82550; 82553; 82803; 82947; 83036; 83735; 84100; 84484; 85014; 85025; 85027; 85520; 85610; 85730; 93005; 93010; 93017; 93455; 96360; 96361; 96372; 96374; 96375; 97110; 97116; 97162; 97166; 97535; 99152; 99153; 99285-25; A9270; A9500; C1751; C1769; C1894; G0378; J0360; J1644; J1650; J1815; J2250; J2785; J3010; J3480; J7030; J7050; Q9967

== ENCOUNTER 2022-08-21 12:24 | Day surgery (SDC) | payer OTHER ==
[~2022-08-21] VITALS: Ht 188 cm; Wt 110.6 kg
[~2022-08-21 12:24] MED LIST changes: +CLOP75 PO; +Floxin10 ML BOTHEYES; +GABA300 PO; +KETO.5OPSO BOTHEYES; +MIRALAX17 GM PO; +PRED FORTE5 ML BOTHEYES; +QUET25 PO; +THERA-D2000 UNIT PO
--- NOTE | 2022-08-21 13:17 | NUR ---
08/21/22 1317 Zamzam Palumbo CALL LIGHT WITHIN REACH. RODOLFOIN IN RIGHT EYE AT 1310 AND SHUBHAM IN AT 1311
== END 2022-08-21 14:44 | disposition home or self-care (01) ==
LOC: ORSCSDS 12:24
PROVIDERS: Ophthalmology
PROC: 08RJ3JZ Replacement of Right Lens with Synthetic Substitute, Percutaneous Approach (ICD-10-PCS; principal; 2022-08-21 14:00)
DX: H25.11 Age-related nuclear cataract, right eye (principal); E11.36 Type 2 diabetes mellitus with diabetic cataract; G47.33 Obstructive sleep apnea (adult) (pediatric); I10 Essential (primary) hypertension; E11.40 Type 2 diabetes mellitus with diabetic neuropathy, unspecified; Z79.4 Long term (current) use of insulin; I25.10 Atherosclerotic heart disease of native coronary artery without angina pectoris; Z79.02 Long term (current) use of antithrombotics/antiplatelets; Z79.899 Other long term (current) drug therapy
CPT/HCPCS: 82947; J2001; J2250; J3010; J3301; J7040; V2632

== ENCOUNTER 2024-02-18 22:04 | Inpatient (IN) | payer OTHER, MEDICARE ==
[~2024-02-18] VITALS: Ht 188 cm; Wt 101.9 kg
[~2024-02-18 22:04] MED LIST changes: +CLIN300 PO
[2024-02-18 22:37] LABS: BASOPHILS ABSOLUTE AUTO 0.06 K/mm3 (0.00-0.23); BASOPHILS PERCENT AUTO 1 % (0-2); EOSINOPHILS ABSOLUTE AUTO 0.26 K/mm3 (0.00-0.68); EOSINOPHILS PERCENT AUTO 2 % (0-6); Hematocrit 32.2 % (37.0-53.0); Hemoglobin 10.4 g/dL (13.5-17.5); IMMATURE GRAN ABSOLUTE AUTO 0.05 K/mm3 (0.00-0.10); IMMATURE GRAN PERCENT AUTO 0 % (0-1); LYMPHOCYTES PERCENT AUTO 11 % (21-46); MONOCYTES ABSOLUTE AUTO 1.21 K/mm3 (0.16-1.47); MONOCYTES PERCENT AUTO 9 % (4-13); Mean Corpuscular HGB 29.2 pg (26.0-34.0); Mean Corpuscular HGB Conc 32.3 g/dL (31.5-36.5); Mean Corpuscular Volume 90 fL (80-100); Mean Platelet Volume 10.8 fL (9.1-12.4); NEUTROPHILS ABSOLUTE AUTO 9.93 K/mm3 (1.96-9.15); NEUTROPHILS PERCENT AUTO 77 % (41-73); Platelet Count 288 K/mm3 (150-400); RDW Coefficient Variation 13.8 % (11.7-14.2); RDW Standard Deviation 45.5 fL (35.1-46.3); Red Blood Cell Count 3.56 M/mm3 (4.30-5.90); White Blood Cell Count 12.91 K/mm3 (4.00-11.30)
[2024-02-18 22:54] LABS: Albumin, Blood 2.2 g/dL (3.4-5.0); Albumin/Globulin Ratio 0.5 (0.8-1.8); Bilirubin, Total 0.8 mg/dL (0.1-1.0); Bun/Creatinine Ratio 21.1 (12.0-20.0); Calcium, Blood 8.9 mg/dL (8.5-10.1); Creatinine, Blood 1.28 mg/dL (0.60-1.20); Globulin, Blood 4.5 g/dL (2.2-4.0); Potassium, Blood 4.2 mmol/L (3.5-5.5); Total Protein, Blood 6.7 g/dL (6.4-8.2)
[2024-02-19] VITALS (14 sets, daily range): BP systolic 104–141; BP diastolic 50–78
[2024-02-19] MEDS ORDERED: Ciprofloxacin 400MG/D5 200ML 200 ML IV ONE (03:25)
[2024-02-19] MEDS ORDERED: Vancomycin HCL 2,000 MG in NS 500 ML IV ONE (03:35)
[2024-02-19] MEDS ORDERED: FLU VACC TS2024-25(6MOS UP)/PF 45 MCG/0.5 ML SYRINGE IM SCH (04:35)
[2024-02-19] MEDS ORDERED: Magnesium Hydroxide Conc 10 ML UDC PO PRN (04:35)
[2024-02-19] MEDS ORDERED: Acetaminophen 325 MG TABLET PO PRN (04:40)
[2024-02-19] MEDS ORDERED: Bisacodyl 10 MG Supp PR PRN (04:40)
[2024-02-19 05:08] LABS: BASOPHILS ABSOLUTE AUTO 0.07 K/mm3 (0.00-0.23); BASOPHILS PERCENT AUTO 1 % (0-2); EOSINOPHILS ABSOLUTE AUTO 0.12 K/mm3 (0.00-0.68); EOSINOPHILS PERCENT AUTO 1 % (0-6); Hematocrit 28.9 % (37.0-53.0); Hemoglobin 9.3 g/dL (13.5-17.5); IMMATURE GRAN ABSOLUTE AUTO 0.06 K/mm3 (0.00-0.10); IMMATURE GRAN PERCENT AUTO 0 % (0-1); LYMPHOCYTES ABSOLUTE AUTO 1.11 K/mm3 (0.84-5.20); LYMPHOCYTES PERCENT AUTO 8 % (21-46); MONOCYTES ABSOLUTE AUTO 1.44 K/mm3 (0.16-1.47); MONOCYTES PERCENT AUTO 10 % (4-13); Mean Corpuscular HGB 29.2 pg (26.0-34.0); Mean Corpuscular HGB Conc 32.2 g/dL (31.5-36.5); Mean Corpuscular Volume 91 fL (80-100); NEUTROPHILS ABSOLUTE AUTO 11.77 K/mm3 (1.96-9.15); NEUTROPHILS PERCENT AUTO 81 % (41-73); Platelet Count 237 K/mm3 (150-400); RDW Coefficient Variation 13.8 % (11.7-14.2); RDW Standard Deviation 45.9 fL (35.1-46.3); Red Blood Cell Count 3.19 M/mm3 (4.30-5.90); White Blood Cell Count 14.57 K/mm3 (4.00-11.30)
[2024-02-19] MEDS ORDERED: Clindamycin 600mg in D5W 50 ML IV SCH (05:26)
[2024-02-19 05:27] LABS: Anion Gap 14 mmol/L (3-11); Blood Urea Nitrogen 31 mg/dL (8-24); Bun/Creatinine Ratio 21.2 (12.0-20.0); CO2, Blood 21 mmol/L (21-32); Calcium, Blood 8.3 mg/dL (8.5-10.1); Chloride, Blood 107 mmol/L (98-108); Creatinine, Blood 1.46 mg/dL (0.60-1.20); Glomerular Filtration Rate 50 (60-); Glucose, Blood 179 mg/dL (70-99); Phosphorus, Blood 4.2 mg/dL (2.5-4.9); Sodium, Blood 138 mmol/L (136-145)
[2024-02-19] MEDS ORDERED: Insulin Human Lispro 100 Units/ML 3ML Syringe SC SCH ×2 (06:00→07:30)
[2024-02-19] MEDS ORDERED: Polyethylene Glycol 3350 17 gm PO PRN (07:30)
[2024-02-19] MEDS ORDERED: NS 250 ML IV PRN (07:45)
[2024-02-19] MEDS ORDERED: Carvedilol 6.25 MG Tab PO SCH (08:00)
[2024-02-19] MEDS ORDERED: Aspirin 81 MG TabEC PO SCH (09:00)
[2024-02-19] MEDS ORDERED: Lactobacil 2-S.Thermo-Bifido 1 1 Cap PO SCH (09:00)
[2024-02-19] MEDS ORDERED: Cholecalciferol 1000 Unit Tablet (=25MCG) PO SCH (09:00)
[2024-02-19] MEDS ORDERED: Doxycycline Hyclate 100 MG TAB PO SCH (09:00)
[2024-02-19] MEDS ORDERED: DULoxetine HCL 60 MG Capsule DR PO SCH (09:00)
[2024-02-19] MEDS ORDERED: Insulin Glargine-Yfgn 100 Unit/mL 3 ML SYR SC SCH (09:00)
[2024-02-19] MEDS ORDERED: Sennosides 8.6 MG Tab PO SCH (09:00)
[2024-02-19] MEDS ORDERED: Docusate Sodium 100 MG Cap PO SCH (09:00)
[2024-02-19] MEDS ORDERED: Gabapentin 300 MG Cap PO SCH ×2 (09:00→18:00)
[2024-02-19] MEDS ORDERED: Atorvastatin 10 MG Tab PO SCH (09:00)
[2024-02-19] MEDS ORDERED: Atorvastatin 40 MG Tab PO SCH (09:00)
[2024-02-19] MEDS ORDERED: Lactated Ringer's 1,000 ML IV SCH (15:15)
[2024-02-19] MEDS ORDERED: Lidocaine HCl 1% 30 ML SDV ONE (15:26)
[2024-02-19] MEDS ORDERED: Bupivacaine 0.5% HCl 5 MG/ML 30MLVIAL ONE (15:26)
--- NOTE | 2024-02-19 15:29 | NUR ---
PT TAKEN TO THE OR VIA GURNEY BY DAY SURGERY YARELI COVINGTON AND AMADOU.
--- NOTE | 2024-02-19 15:39 | NUR ---
PT HAS 20G IV TO LEFT WRIST THAT FLUSHES WELL AND FLOWS TO GRAVITY.
[2024-02-19] MEDS ORDERED: propofoL 40 ML IV ONE (15:40)
--- NOTE | 2024-02-19 15:55 | NUR ---
CLEOCIN AND VANCO TUBED TO DAY SURGERY.
[2024-02-19] MEDS ORDERED: Vancomycin HCL 750 MG in NS 250 ML IV SCH (16:00)
[2024-02-19] MEDS ORDERED: propofoL 20 ML IV ONE ×2 (16:10→16:26)
[2024-02-19] MEDS ORDERED: Lidocaine HCl 1% 30 ML SDV XX ONE (16:10)
--- NOTE | 2024-02-19 17:39 | NUR ---
PT ARRIVED BACK TO THE FLOOR FROM THE OR AT APPROX 1730. PT A&OX3, VSS, TRANSFERRED FROM [facility] TO BED VIA SLIDE SHEET, TOLERATING PO, AND DENIED PAIN. DRESSINGS IN PLACE ON BILAT FEET THAT WERE C/D/I.
--- NOTE | 2024-02-19 18:07 | NUR ---
SHIFT SUMMARY PT A&OX4, VSS, TOLERATING PO, VOIDING, AND DENIED PAIN. PT HAD L GREAT TOE AMPUTATED AND I&D ON THE R. DRESSING ON BILAT FEET REMAIN C/D/I. CALL LIGHT WITHIN REACH AND BED ALARM ON FOR SAFETY.
[2024-02-19] MEDS ORDERED: QUEtiapine Fumarate 50 MG TAB PO SCH (21:00)
[2024-02-19] MEDS ORDERED: Docusate Sodium/Senna 1 Tab PO SCH (21:00)
[2024-02-20 03:04] VITALS: BP 119/54
--- NOTE | 2024-02-20 04:40 | NUR ---
SHIFT SUMMARY PATIENT DENIED ANY PAIN IN HIS FEET.EVEN THOUGH HE JUST HAD SURGERY. ABLE TO WALK TO BR WITH WALKER AND 1 PERSON SBA. GIVEN PRN TYLENOL JUST TO HELP HIM REST.
[2024-02-20 07:13] VITALS: BP 118/58
[2024-02-20] MEDS ORDERED: Enoxaparin 40 MG/0.4 ML SYR SC SCH (09:00)
[2024-02-20 15:10] VITALS: BP 119/60
[2024-02-20 15:54] LABS: Vancomycin, Trough 15.6 ug/mL (5.0-10.0)
[2024-02-20] MEDS ORDERED: Dose Adjust by Pharmacy XX STA (16:01)
--- NOTE | 2024-02-20 19:16 | NUR ---
REPORT RECEIVED VERIFIED A/O X2-3 SEEMS FORGETFUL BUT VERY PLEASENT AND COOPERATIVE. PT UP WIITH PHYSICAL THERAPY AND DOING VERY WELL, NO C/O PAIN AT THIS MOMENT. NO CHANGE LAYING QUIETLY IN BED, ANTIBIOTICS INFUSING. AWAITING TOWER LOADER OPERATOR FOR FUTHER INSTRUCTION. 1730 MD IN NO WOUND VAC ORDERED FOR PT BUT IR CONSULT ORDERED FOR PT. DR NIETO WAS NOTIFIED OF PT NEEDING REVASCULARIZATION, MD WILL BE IN TOMORROW TO ASSESS PT. FAMILY IS AWARE
[2024-02-20 19:43] VITALS: BP 115/52
[2024-02-21 03:58] VITALS: BP 122/59
--- NOTE | 2024-02-21 04:41 | NUR ---
GERIATRIC SOCIAL WORK PROFESSOR SUMMARY PT APPEARED TO SLEEP WELL. HAS NO PAIN IN FEET. IR CONSULT MADE YESTERDAY PT WILL LIKELY NEED HIS LEFT LEG REVASCULARIZED FOR WOUND HEALING. HEEL FLOATED OFF BED. DRESSINGS ARE C/D/I. WILL CLARIFY ON DAY SHIFT IF PT NEEDS TO HAVE WOUND CARE ORDERS FOR HIS FEET.
[2024-02-21 05:28] LABS: Hemoglobin 9.3 g/dL (13.5-17.5); Mean Corpuscular HGB 29.5 pg (26.0-34.0); Mean Corpuscular HGB Conc 33.2 g/dL (31.5-36.5); Mean Corpuscular Volume 89 fL (80-100); Mean Platelet Volume 10.9 fL (9.1-12.4); Platelet Count 267 K/mm3 (150-400); RDW Coefficient Variation 13.9 % (11.7-14.2); Red Blood Cell Count 3.15 M/mm3 (4.30-5.90); White Blood Cell Count 9.17 K/mm3 (4.00-11.30)
[2024-02-21 06:05] LABS: Albumin, Blood 1.8 g/dL (3.4-5.0); Anion Gap 11 mmol/L (3-11); Blood Urea Nitrogen 28 mg/dL (8-24); Bun/Creatinine Ratio 28.1 (12.0-20.0); CO2, Blood 22 mmol/L (21-32); Calcium, Blood 8.4 mg/dL (8.5-10.1); Chloride, Blood 110 mmol/L (98-108); Glomerular Filtration Rate 78 (60-); Glucose, Blood 111 mg/dL (70-99); Magnesium, Blood 2.1 mg/dL (1.6-2.4); Potassium, Blood 3.7 mmol/L (3.5-5.5); Sodium, Blood 139 mmol/L (136-145)
[2024-02-21 07:35] VITALS: BP 145/72
[2024-02-21] MEDS ORDERED: Vancomycin HCL 1,250 MG in NS 250 ML IV SCH (12:00)
[2024-02-21] MEDS ORDERED: Arginine/Glutamine/Calcium Hmb 1 Packet PO ONE (12:10)
[2024-02-21 15:44] VITALS: BP 120/55
[2024-02-21 16:50] VITALS: BP 111/54
--- NOTE | 2024-02-21 19:03 | NUR ---
SHIFT SUMMARY: PATIENT A/OX3, PLEASANT AND COOPERATIVE c CARE. PATIENT DENIES GENERALIZED PAIN, SOB, N/V AND DIZZINESS. DRESSING CHANGED TO BILAT FOOT PER ORDER. PATIENT WORK c PT TODAY, RECOMMENDING SRVICES. DR. NIETO CAME AND SAW PATIENT THIS AM AND ORDERED CT TO ABDOMEN c RUNOFF, CT WAS DONE LATE THIS PM, AWAITING FOR RESULT. PER DR. NIETO PLAN TO HAVE PATIENT REVASCULARIZE SOMETIMES ON SATURDAY. PATIENT HAD BEDBATH AND LINEN CHANGED TODAY. PATIENT HAS GREAT APPETITE, CONTINENT OF BLADDER, USES URINAL INDEPENDENTLY AT BEDSIDE T/O SHIFT. PATIENT RECEIVED IV ABX/SCHEDULED MEDS PER EMAR. VITAL SIGNS REVIEWED. CALL LIGHT IN REACH.
[2024-02-21 19:58] VITALS: BP 135/58
[2024-02-22 02:00] VITALS: BP 122/69
--- NOTE | 2024-02-22 06:22 | NUR ---
JOB PLACEMENT SPECIALIST SUMMARY NO ACUTE CHANGES OVERNIGHT. PT APPEARED TO SLEEP WELL. NO PAIN IN FEET. DRESSING CHANGES WERE DONE ON DAY SHIFT. FAMILY VISITED.
[2024-02-22 07:26] VITALS: BP 144/64
[2024-02-22 15:28] VITALS: BP 148/63
[2024-02-22 16:19] VITALS: BP 148/66
--- NOTE | 2024-02-22 17:46 | NUR ---
SHIFT SUMMARY: PATIENT A/OX3, FORGETFUL AT TIMES BUT EASILY REDIRECTABLE. NO NEW CHANGES THIS SHIFT. DRESSING TO L FOOT C/D/I, DRESSING CHANGED TO R FOOT PER ORDER. PATIENT DENIES ANY PAIN TO BLE'S. PATIENT HAS GREAT APPETITE, CONTINENT OF BLADDER, USES URINAL INDEPENDENTLY T/O SHIFT. PATIENT SAT UP IN THE RECLINER CHAIR FOR ABOUT 3 HRS THIS SHIFT, TOLERATED WELL. PATIENT RECEIVED IV ABX/SCHEDULED MEDS PER EMAR. VITAL SIGNS REVIEWED. BED ALARM ON FOR SAFETY. CALL LIGHT IN REACH
[2024-02-22 19:24] VITALS: BP 148/57
[2024-02-23 03:53] VITALS: BP 135/69
--- NOTE | 2024-02-23 04:33 | NUR ---
ANALOG DESIGN ENGINEER SUMMARY NO ACUTE CHANGES OVERNIGHT. SEE ASSESSMENT/VITALS/EMAR/I&O
[2024-02-23 06:16] LABS: Bun/Creatinine Ratio 20.4 (12.0-20.0); Calcium, Blood 8.8 mg/dL (8.5-10.1); Creatinine, Blood 0.93 mg/dL (0.60-1.20); Potassium, Blood 4.1 mmol/L (3.5-5.5)
[2024-02-23 07:53] VITALS: BP 166/64
[2024-02-23 15:18] VITALS: BP 150/66
[2024-02-23 17:24] VITALS: BP 157/64
--- NOTE | 2024-02-23 17:41 | NUR ---
SHIFT SUMMARY: PATIENT HAS HAD NO NEW ACUTE CHANGES THIS SHIFT. A/OX3, FORGETFUL AT TIMES BUT EASILY REDIRECTABLE. PATIENT BILAT FOOT DRESSING CHANGED PER ORDER. PATIENT RECEIVED IV ABX/SCHEDULED MEDS PER EMAR. PATIENT SAT UP IN THE RECLINER CHAIR FOR ABOUT 4 HRS THIS SHIFT, TOLERATED WELL. PATIENT HAS GREAT APPETITE, CONTINENT OF BLADDER AND USES URINAL AT BEDSIDE T/O SHIFT. BED ALARM ON FOR SAFETY. CALL LIGHT IN REACH.
[2024-02-23 20:02] VITALS: BP 143/54
[2024-02-24] VITALS (16 sets, daily range): BP systolic 132–172; BP diastolic 48–74
[2024-02-24] MEDS ORDERED: NS 250 ML IV ONE (07:14)
[2024-02-24] MEDS ORDERED: NS 1,000 ML IV ONE ×2 (07:14→07:27)
[2024-02-24] MEDS ORDERED: Heparin Sodium 1000 Units/ML 10ML MDV ONE ×2 (07:14→07:27)
[2024-02-24] MEDS ORDERED: NS 100 ML IV ONE ×3 (07:14→10:04)
[2024-02-24] MEDS ORDERED: Nitroglycerin 2 MG/20 ML BTL ONE (07:15)
[2024-02-24] MEDS ORDERED: Midazolam HCl 1MG / ML 2ML Vial ONE (07:26)
[2024-02-24] MEDS ORDERED: FentaNYL Citrate 50 MCG/ML 2 ML Injection ONE (07:27)
--- NOTE | 2024-02-24 08:04 | NUR ---
ASSOCIATE SALES MANAGER SUMMARY NO ACUTE CHANGES OVERNIGHT. PT MADE NPO FOR PROCEDURE AT MIDNIGHT. GAVE HALF DOSE LANTUS PER MD ORDER AT BEDTIME.
--- NOTE | 2024-02-24 08:05 | NUR ---
PATIENT TO [facility]ASC PROCEDURE. ASHWIN NOTIFIED. AWAITING ROOM ASSIGNMENT IN PCU AND WILL TAKE DOWN BELONGINGS WHEN ROOM AVAILABLE.
[2024-02-24] MEDS ORDERED: Protamine Sulfate 50 MG Amp ONE (10:14)
[2024-02-24] MEDS ORDERED: Lidocaine 2%-Epineph 1:100000 20 ML MDV ONE (10:59)
--- NOTE | 2024-02-24 11:45 | NUR ---
TRANSFER TO PCU: THIS PT HAS ARRIVED TO PCU-19 AT APPROX 1128 FROM THE EMPLOYMENT PROGRAMS ANALYST S/P PERIPHERAL REVASC OF [facility]. PRIOR TO THIS, THE PT WAS IN ROOM 309. ON ARRIVAL TO PCU, THE PT IS ALERT, ORIENTED TO SELF, PERSON & LOCATION, OCCASIONALLY FORGETFUL OF DETAILS BUT RESPONDS WELL TO VERBAL CUES/ REMINDERS. LS CLEAR, PT ON RA WITH O2 SATS > 92%. MONITOR SHOWS SB-SR WITH HR 50-60s, BP STABLE. RIGHT GROIN ARTERIAL ACCESS SITE WITH ANGIOSEAL CLOSURE IN PLACE, PER REPORT. THERE IS A SMALL AMNT OF BLEEDING/ BRUISING NOTED UNDER CHG, UNCHANGED SINCE ARRIVAL TO PCU. SURROUNDING TISSUE IS SOFT & NONTENDER, PER PT REPORT. BLE PULSES ARE FOUND VIA DOPPLER & MARKED BY THIS RN. PT NPO WHILE LAYING FLAT, OKAY TO EAT ONCE SITTING UPRIGHT/ AMBULATORY. VOIDING SMALL AMNTS USING URINAL, STS DIFFICULT WHILE LAYING IN BED. WOUNDS TO BILAT FEET HAVE BEEN CLEANSED & REDRESSED BY THIS RN - WRAPPED IN KERLEX WITH EDENILSON BANDAGE TO HOLD IN PLACE. LEFT GREAT TOE AMPUTATION & RIGHT GREAT TOE WOUND DEBRIDEMENT COMPLETED DURING THIS ADMISSION. WILL CONTINUE TO MONITOR GROIN SITE & ADVANCE PT MOBILITY TOLERATED.
[2024-02-24] MEDS ORDERED: Clindamycin 600mg in D5W 50 ML IV SCH (12:00)
[2024-02-24] MEDS ORDERED: HydrALAZINE HCl 20 MG / ML 1ML Vial IV PRN (17:00)
--- NOTE | 2024-02-24 18:06 | NUR ---
SHIFT SUMMARY: NO ACUTE CHANGES SINCE TRANSFER TO PCU. THIS RN HAS CONTACTED DR GERONIMO THIS EVENING REGARDING PT's INCREASING SBP UP TO 170s. SCHEDULED COREG HAS BEEN HELD R/T HR CONSISTENTLY 50s. SHE HAS REVIEWED THE CHART & ORDERED PRN HYDRALAZINE. THE PT IS AGAIN MEDICAL STATUS NOW THAT HE IS FULLY RECOVERED S/P PERIPHERAL REVASC. THE PT REMAINS A&O TO ALL, FORGETFUL AT TIME BUT OVERALL REDIRECTABLE. BED ALARM IN USE, FREQUENT FALLS REPORTED AT HOME. LS CLEAR, PT ON RA WITH O2 SATS > 92%. MONITOR SHOWS SB WITH HR 50s, OCCASIONAL PACs. HTN IMPROVED THIS EVENING. PT DENIES GI COMPLAINTS, IS TOLERATING PO INTAKE WELL & HAD X-LARGE BM THIS AFTERNOON. VOIDS URINE WITHOUT DIFFICULTY USING URINAL. SKIN CONDITION OVERALL FRAGILE. RIGHT GROIN PUNCTURE SITE WNL; SMALL AMNT BLOOD NOTED UNDER CHG REMAINS UNCHANGED WITH SURROUNDING TISSUE SOFT & NONTENDER TO PALPATION. BILATERAL TOE SURGICAL SITES WITH DRESSINGS CDI. Q2H REPOSITIONING TO MAINTAIN SKIN INTEGRITY. WILL CONTINUE TO MONITOR & REPORT OFF TO ONCOMING RN.
--- NOTE | 2024-02-24 22:05 | NUR ---
REPORT GIVEN TO YARELI BROOKS. PT TRANSPORTED WITH ALL BELONGINGS AND PAPERWORK TO MED[facility] 306 BY BED. PT TOLERATED WELL.
[2024-02-25 03:36] VITALS: BP 156/64
--- NOTE | 2024-02-25 05:24 | NUR ---
SHIFT SUMMARY PT A&OX3 AND ANSWERS QUESTIONS APPROPRIATELY. PT ARRIVED VIA HOSPITAL BED FROM PCU AND ORIENTED TO ROOM AT 2142. SCHEDULED MEDICATIONS ADMINISTERED PER EMAR. PT HAS CONTINUOUS TELE IN PLACE AND IS RUNNING NSR IN THE 70S. VSS, NO COMPLAINTS OF CP/PRESSURE OR SOB. PT SPENT MOST OF SHIFT IN BED WITH EYES CLOSED AND RESPIRATIONS EVEN AND UNLABORED. NO ACUTE EVENTS AT THIS TIME. PT LEFT IN A POSITION OF SAFETY WITH PROPER FALL PRECAUTIONS IN PLACE. PT REPOSITIONED Q2 HOURS. CALL LIGHT IN REACH.
[2024-02-25 06:21] LABS: Bun/Creatinine Ratio 14.6 (12.0-20.0); Calcium, Blood 9.1 mg/dL (8.5-10.1); Creatinine, Blood 1.03 mg/dL (0.60-1.20); Potassium, Blood 4.1 mmol/L (3.5-5.5)
[2024-02-25 07:31] VITALS: BP 151/59
[2024-02-25 14:50] VITALS: BP 140/63
--- NOTE | 2024-02-25 18:46 | NUR ---
SHIFT SUMMARY PATIENT A/OX3, AND FORGETFUL. ABLE TO MAKE NEEDS KNOWN. TELEMETRY IN PLACE, NO EVENTS NOTED TODAY. CONTINUES WITH IV ABX. HAD A SHOWER THIS MORNING, WOUND CARE PROVIDED PER ORDERS. PLAN TO HAVE REVASCULARIZATION TO LEFT LEG TOMORROW, NPO AT MIDNIGHT AND ORDERS TO HOLD BLOOD THINNERS 02/26/24 AM FOR PROCEDURE. DAUGHTER AT BEDSIDE CURRENTLY, NO OTHER CONCERNS AT THIS TIME.
[2024-02-25 19:17] VITALS: BP 138/59
[2024-02-26] VITALS (17 sets, daily range): BP systolic 110–149; BP diastolic 44–68
--- NOTE | 2024-02-26 04:41 | NUR ---
SHIFT SUMMARY PT IS A&OX3, FORGETFUL AT TIMES. VSS ON RA. PER TELEMETRY PT IS SR @ 62 WITH FIRST DEGREE BLOCK. DENIES PAIN. TOLERATING A CONS CARB DIET, NPO AFTER MN FOR A PROCEDURE THIS MORNING. VOIDING IN URINAL, INDEPENDENTLY, BRIEF IN PLACE. NO BM THIS SHIFT. FOOT DRESSINGS, C/D/I. NOOB THIS SHIFT. BED IN LOWEST POSITION, CALL LIGHT WITHIN REACH.
[2024-02-26] MEDS ORDERED: NS 250 ML IV ONE (13:47)
[2024-02-26] MEDS ORDERED: NS 1,000 ML IV ONE ×2 (13:47→14:12)
[2024-02-26] MEDS ORDERED: Heparin Sodium 1000 Units/ML 10ML MDV ONE (13:47)
[2024-02-26] MEDS ORDERED: FentaNYL Citrate 50 MCG/ML 2 ML Injection ONE (14:13)
[2024-02-26] MEDS ORDERED: HydrALAZINE HCl 20 MG / ML 1ML Vial ONE (14:46)
[2024-02-26] MEDS ORDERED: Thrombin 5000/Vial TOP SCH (14:55)
--- NOTE | 2024-02-26 15:36 | NUR ---
TRANSFER UPDATE REPORT RECIEVED FROM MED FLOOR RN AT 1430. OT ARRIVED FROM CANCER REGISTRY MANAGER AT 1535 VIA HOSPITAL BED AND ON RA. PT A/OX 3-4. RIGHT GROIN AND LEFT GROIN SITES C/D/I. NO BLEEDING, HEMATOMA OR TENDERNESS NOTED.
--- NOTE | 2024-02-26 18:30 | NUR ---
SHIFT SUMMARY PT A/OX3 SINCE ARRIVING TO UNIT. ABLE TO EXPRESS NEEDS TO STAFF WHEN IN ROOM. PT VSS SINCE ARRIVING TO UNIT. PT LEFT AND RIGHT GROIN SITES C/D/I, NO HEMATOMA, BLEEDING OR TENDERNESS NOTED. PT COOPERATIVE OF LAYING FLAT AFTER PROCEDURE, GRADUALLY RAISING HOB PER PROTOCOL.
--- NOTE | 2024-02-26 19:14 | NUR ---
DRESSING OF RIGHT FOOT CHANGED AT 1845.
[2024-02-27] VITALS: BP 122/56
[2024-02-27 03:26] VITALS: BP 130/58
[2024-02-27 03:52] LABS: Hematocrit 28.5 % (37.0-53.0); Hemoglobin 9.2 g/dL (13.5-17.5); Mean Corpuscular HGB 28.8 pg (26.0-34.0); Mean Corpuscular HGB Conc 32.3 g/dL (31.5-36.5); Mean Corpuscular Volume 89 fL (80-100); Mean Platelet Volume 9.7 fL (9.1-12.4); Platelet Count 306 K/mm3 (150-400); RDW Standard Deviation 45.2 fL (35.1-46.3); White Blood Cell Count 11.28 K/mm3 (4.00-11.30)
[2024-02-27 04:12] LABS: Calcium, Blood 8.7 mg/dL (8.5-10.1); Creatinine, Blood 1.13 mg/dL (0.60-1.20); Potassium, Blood 4.2 mmol/L (3.5-5.5)
--- NOTE | 2024-02-27 05:40 | NUR ---
SHIFT SUMMARY PT A&O X3, ABLE TO MAKE NEEDS KNOWN, CALLS APPROPRIATELY. VSS, AFEBRILE, SPO2 >92% RA. LEFT AND RIGHT GROIN SITES ARE C/D/I AND FREE FROM BLEEDING, REDNESS, HEMATOMA, AREA IS NON TENDER. DRESSINGS TO BILATERAL FEET ARE C/D/I, PT DENIES PAIN. PT USES URINAL INDEPENDENTLY. HE IS RESTING IN BED, BREATHING EVEN AND UNLABORED, CALL LIGHT IN REACH.
[2024-02-27 08:08] VITALS: BP 132/52
[2024-02-27] MEDS ORDERED: CLIN150 PO (12:19)
[2024-02-27] MEDS ORDERED: DOXY100 PO (12:22)
[2024-02-27] MEDS ORDERED: DOCUZEN 8.6-501 EACH PO (12:22)
[2024-02-27] MEDS ORDERED: VISBIOME 112.51 EACH PO (12:22)
[2024-02-27 12:46] VITALS: BP 117/54
--- NOTE | 2024-02-27 13:41 | NUR ---
DISHCARGE UPDATE DISCHARGE PACKET GONE OVER WITH PT AND PT AT 1310. PT DISCHARGED AT 1330 VIA WHEELCHAIR AND ON RA. PT ABLE TO TRANSFER TO AND FROM WHEELCHAIR WITH MINIMAL ASSISTANCE, TOLERATED WELL. PERSONAL BELONGINGS AND DISCHARGE PACKET WITH PT AT TIME OF DISCHARGE. PT AND EDUCATED ON DRESSING CHANGES AND SIGNS OF INFECTION, BOTH VERBALIZED UNDERSTANDING.
== END 2024-02-27 13:36 | disposition home or self-care (01) | DRG 616 ==
LOC: ER 22:04 → MEDS 02-19 04:32 → PCU 02-24 11:34 → MEDS 02-24 22:03 → PCU 02-26 14:18
PROVIDERS: Family Medicine; Internal Medicine; Podiatrist Foot & Ankle Surgery; Student in an Organized Health Care Education/Training Program; ADMIT Student in an Organized Health Care Education/Training Program
PROC: 0Y6Q0Z1 Detachment at Left 1st Toe, High, Open Approach (ICD-10-PCS; principal; 2024-02-19 15:30)
PROC: 047R3ZZ Dilation of Right Posterior Tibial Artery, Percutaneous Approach (ICD-10-PCS; 2024-02-24)
PROC: 047M3ZZ Dilation of Right Popliteal Artery, Percutaneous Approach (ICD-10-PCS; 2024-02-24)
PROC: B41G1ZZ Fluoroscopy of Left Lower Extremity Arteries using Low Osmolar Contrast (ICD-10-PCS; 2024-02-26)
DX: E11.621 Type 2 diabetes mellitus with foot ulcer (principal); A48.0 Gas gangrene; E11.52 Type 2 diabetes mellitus with diabetic peripheral angiopathy with gangrene; L03.116 Cellulitis of left lower limb; F05 Delirium due to known physiological condition; E11.42 Type 2 diabetes mellitus with diabetic polyneuropathy; R29.6 Repeated falls; I25.10 Atherosclerotic heart disease of native coronary artery without angina pectoris; I12.9 Hypertensive chronic kidney disease with stage 1 through stage 4 chronic kidney disease, or unspecified chronic kidney disease; N18.30 Chronic kidney disease, stage 3 unspecified; K21.9 Gastro-esophageal reflux disease without esophagitis; E78.5 Hyperlipidemia, unspecified; G47.33 Obstructive sleep apnea (adult) (pediatric); L97.519 Non-pressure chronic ulcer of other part of right foot with unspecified severity; F03.90 Unspecified dementia, unspecified severity, without behavioral disturbance, psychotic disturbance, mood disturbance, and anxiety; F32.A Depression, unspecified; E11.22 Type 2 diabetes mellitus with diabetic chronic kidney disease; I72.4 Aneurysm of artery of lower extremity; W18.30XA Fall on same level, unspecified, initial encounter; Z88.0 Allergy status to penicillin; Z88.2 Allergy status to sulfonamides; Z88.8 Allergy status to other drugs, medicaments and biological substances; Z79.899 Other long term (current) drug therapy; Z79.82 Long term (current) use of aspirin; Z95.1 Presence of aortocoronary bypass graft; Z79.4 Long term (current) use of insulin; Z98.890 Other specified postprocedural states; Z87.891 Personal history of nicotine dependence; Z79.2 Long term (current) use of antibiotics
CPT/HCPCS: 36415; 37228; 37232; 70450; 73660; 75625; 75635; 75716; 75774; 76937; 80048; 80053; 80069; 80202; 82947; 83036; 83605; 83735; 85025; 85027; 85347; 86141; 87040; 87071; 87075; 87077; 87205; 88305; 88311; 93005; 93010; 96374; 97110; 97116; 97161; 97530; 99285-25; A9270; C1725; C1760; C1769; C1887; C1894; J0360; J0744; J1644; J1650; J1815; J2250; J2704; J2720; J3010; J3370; J7030; J7040; J7050; J7120; Q9967

== ENCOUNTER 2024-04-01 04:34 | Day surgery (SDC) | payer OTHER ==
[~2024-04-01 04:34] MED LIST changes: +CLIN150 PO; +DILT120ERA PO; +DOCUZEN 8.6-501 EACH PO; +DOXY100 PO; +FENO145 PO; +FURO20; +INSULANI; +JARDIANCE25 MG PO; +LIDO700A20 TOP; +NOVOLOG MI100 UNIT/2 SQ; +OZEMPIC0.25 MG/02 SQ; +VISBIOME 112.51 EACH PO
== END 2024-04-01 23:00 | disposition home or self-care (01) ==
LOC: WOUND 04:34
DX: E11.621 Type 2 diabetes mellitus with foot ulcer (principal); L97.415 Non-pressure chronic ulcer of right heel and midfoot with muscle involvement without evidence of necrosis; L97.412 Non-pressure chronic ulcer of right heel and midfoot with fat layer exposed; L97.525 Non-pressure chronic ulcer of other part of left foot with muscle involvement without evidence of necrosis; E11.40 Type 2 diabetes mellitus with diabetic neuropathy, unspecified; I25.10 Atherosclerotic heart disease of native coronary artery without angina pectoris; I10 Essential (primary) hypertension; Z87.891 Personal history of nicotine dependence; Z89.412 Acquired absence of left great toe; Z88.0 Allergy status to penicillin; Z88.1 Allergy status to other antibiotic agents; Z88.8 Allergy status to other drugs, medicaments and biological substances
CPT/HCPCS: A6213; G0463

== ENCOUNTER 2024-04-08 04:56 | Day surgery (SDC) | payer OTHER | END 2024-04-08 23:00 | disposition home or self-care (01) | LOC: WOUND 04:56 | DX: E11.621 Type 2 diabetes mellitus with foot ulcer (principal); L97.525 Non-pressure chronic ulcer of other part of left foot with muscle involvement without evidence of necrosis; L97.415 Non-pressure chronic ulcer of right heel and midfoot with muscle involvement without evidence of necrosis; L97.412 Non-pressure chronic ulcer of right heel and midfoot with fat layer exposed; E11.40 Type 2 diabetes mellitus with diabetic neuropathy, unspecified; E11.51 Type 2 diabetes mellitus with diabetic peripheral angiopathy without gangrene; Z89.412 Acquired absence of left great toe | CPT/HCPCS: A6213 ==

== ENCOUNTER 2024-05-01 06:23 | Day surgery (SDC) | payer OTHER ==
[~2024-05-01] VITALS: Ht 188 cm; Wt 99.8 kg
[2024-05-01] VITALS (11 sets, daily range): BP systolic 122–180; BP diastolic 55–86
[2024-05-01] MEDS ORDERED: NS 500 ML IV ONE (07:02)
[2024-05-01] MEDS ORDERED: Nitroglycerin 2 MG/20 ML BTL ONE (07:03)
[2024-05-01] MEDS ORDERED: Heparin Sodium 1000 Units/ML 10ML MDV ONE (07:03)
[2024-05-01] MEDS ORDERED: NS 1,000 ML IV ONE ×2 (07:03→07:49)
[2024-05-01] MEDS ORDERED: Midazolam HCl 1MG / ML 2ML Vial ONE ×2 (07:49→08:25)
[2024-05-01] MEDS ORDERED: FentaNYL Citrate 50 MCG/ML 2 ML Injection ONE ×2 (07:49→08:25)
--- NOTE | 2024-05-01 09:15 | NUR ---
patient arrived to [facility] recovery room, awake and responds appropriately, left groin site soft and nontender, no hematoma,no bleeding.
--- NOTE | 2024-05-01 10:34 | NUR ---
patient sitting up in bed, left groin site remains stable.
--- NOTE | 2024-05-01 11:57 | NUR ---
patient at bedside. dressed by self. patient verbalized understanding of discharge instructions and precautions. groin site remains soft and nontender, no hematoma, no bleeding. Patient wanted to wait until he gets home to eat, but drank fluids. reminded him and to recheck blood sugar when he gets home. iv site dced with catheter intact.
== END 2024-05-01 12:06 | disposition home or self-care (01) ==
LOC: MHTC 06:23
DX: E11.51 Type 2 diabetes mellitus with diabetic peripheral angiopathy without gangrene (principal); I70.221 Atherosclerosis of native arteries of extremities with rest pain, right leg; S81.809A Unspecified open wound, unspecified lower leg, initial encounter; I12.9 Hypertensive chronic kidney disease with stage 1 through stage 4 chronic kidney disease, or unspecified chronic kidney disease; E11.22 Type 2 diabetes mellitus with diabetic chronic kidney disease; N18.9 Chronic kidney disease, unspecified; E27.8 Other specified disorders of adrenal gland; Z87.891 Personal history of nicotine dependence; Z79.82 Long term (current) use of aspirin; Z79.02 Long term (current) use of antithrombotics/antiplatelets; Z79.4 Long term (current) use of insulin; Z79.84 Long term (current) use of oral hypoglycemic drugs; Z79.85 Long-term (current) use of injectable non-insulin antidiabetic drugs; Z79.899 Other long term (current) drug therapy; Z88.0 Allergy status to penicillin; Z88.1 Allergy status to other antibiotic agents; Z88.2 Allergy status to sulfonamides; Z88.8 Allergy status to other drugs, medicaments and biological substances
CPT/HCPCS: 75625; 75716; 75774; 76937; 82947; 99152; 99153; C1725; C1760; C1769; C1887; C1894; C9772; J1644; J2250; J3010; J7030; J7050; Q9967

== ENCOUNTER 2024-05-06 03:51 | Day surgery (SDC) | payer OTHER | END 2024-05-06 23:56 | disposition home or self-care (01) | LOC: WOUND 03:51 | DX: E11.621 Type 2 diabetes mellitus with foot ulcer (principal); L97.524 Non-pressure chronic ulcer of other part of left foot with necrosis of bone; L97.514 Non-pressure chronic ulcer of other part of right foot with necrosis of bone; L97.512 Non-pressure chronic ulcer of other part of right foot with fat layer exposed; E11.40 Type 2 diabetes mellitus with diabetic neuropathy, unspecified; E11.51 Type 2 diabetes mellitus with diabetic peripheral angiopathy without gangrene | CPT/HCPCS: G0463 ==

== ENCOUNTER 2024-05-11 14:01 | Inpatient (IN) | payer OTHER ==
[~2024-05-11] VITALS: Ht 188 cm; Wt 95.7 kg
[~2024-05-11 14:01] MED LIST changes: -INSULANI; +INSULANI SC
[2024-05-11 14:59] LABS: BASOPHILS ABSOLUTE AUTO 0.12 K/mm3 (0.00-0.23); BASOPHILS PERCENT AUTO 1 % (0-2); EOSINOPHILS ABSOLUTE AUTO 0.23 K/mm3 (0.00-0.68); EOSINOPHILS PERCENT AUTO 1 % (0-6); Hematocrit 33.5 % (37.0-53.0); Hemoglobin 10.7 g/dL (13.5-17.5); IMMATURE GRAN ABSOLUTE AUTO 0.19 K/mm3 (0.00-0.10); IMMATURE GRAN PERCENT AUTO 1 % (0-1); LYMPHOCYTES ABSOLUTE AUTO 2.03 K/mm3 (0.84-5.20); LYMPHOCYTES PERCENT AUTO 8 % (21-46); MONOCYTES ABSOLUTE AUTO 1.66 K/mm3 (0.16-1.47); MONOCYTES PERCENT AUTO 7 % (4-13); Mean Corpuscular HGB 28.6 pg (26.0-34.0); Mean Corpuscular HGB Conc 31.9 g/dL (31.5-36.5); Mean Corpuscular Volume 90 fL (80-100); Mean Platelet Volume 9.3 fL (9.1-12.4); NEUTROPHILS ABSOLUTE AUTO 20.88 K/mm3 (1.96-9.15); NEUTROPHILS PERCENT AUTO 83 % (41-73); Platelet Count 516 K/mm3 (150-400); RDW Coefficient Variation 14.1 % (11.7-14.2); RDW Standard Deviation 45.9 fL (35.1-46.3); Red Blood Cell Count 3.74 M/mm3 (4.30-5.90); White Blood Cell Count 25.11 K/mm3 (4.00-11.30)
[2024-05-11 15:30] LABS: Albumin, Blood 2.1 g/dL (3.4-5.0); Albumin/Globulin Ratio 0.4 (0.8-1.8); Bilirubin, Total 0.5 mg/dL (0.1-1.0); Bun/Creatinine Ratio 18.6 (12.0-20.0); Calcium, Blood 9.2 mg/dL (8.5-10.1); Creatinine, Blood 1.13 mg/dL (0.60-1.20); Globulin, Blood 5.9 g/dL (2.2-4.0); Potassium, Blood 4.1 mmol/L (3.5-5.5)
[2024-05-11] MEDS ORDERED: Ciprofloxacin 400MG/D5 200ML 200 ML IV ONE (19:30)
[2024-05-11] MEDS ORDERED: Vancomycin HCL 2,000 MG in NS 500 ML IV ONE (19:35)
[2024-05-11] MEDS ORDERED: FLU VACC TS2024-25(6MOS UP)/PF 45 MCG/0.5 ML SYRINGE IM ONE (20:30)
[2024-05-11] MEDS ORDERED: Ondansetron HCl 2 MG / ML 2ML Vial IV PRN (20:30)
[2024-05-11] MEDS ORDERED: NS 1,000 ML IV SCH (20:35)
[2024-05-11] MEDS ORDERED: Lactobacil 2-S.Thermo-Bifido 1 1 Cap PO SCH (21:00)
[2024-05-11] MEDS ORDERED: Meropenem 2,000 MG in NS 250 ML IV SCH (21:00)
[2024-05-11] MEDS ORDERED: Insulin Glargine-Yfgn 100 Unit/mL 3 ML SYR SC SCH (21:00)
[2024-05-11 23:22] VITALS: BP 107/51
[2024-05-12] VITALS (10 sets, daily range): BP systolic 114–154; BP diastolic 54–76
[2024-05-12] MEDS ORDERED: Insulin Human Lispro 100 Units/ML 3ML Syringe SC SCH
--- NOTE | 2024-05-12 04:01 | NUR ---
NEW ER ADMIT THIS SHIFT (2314), A&O FORGETFUL, HAS NOT AMBULATED (REPORTS HE AMBULATES W/WIFES ASSISTANCE AND FWW AT HOME). DENIES PAIN, BLE FOOT WOUNDS PHOTOS ADDED TO CHART, NPO SINCE MIDNIGHT, APPEARS TO BE RESTING COMFORTABLY, WILL CONT TO MONITOR UNTIL REPORT GIVEN TO ONCOMING NURSE.
[2024-05-12 05:05] LABS: BASOPHILS ABSOLUTE AUTO 0.09 K/mm3 (0.00-0.23); BASOPHILS PERCENT AUTO 0 % (0-2); EOSINOPHILS ABSOLUTE AUTO 0.09 K/mm3 (0.00-0.68); EOSINOPHILS PERCENT AUTO 0 % (0-6); Hematocrit 28.8 % (37.0-53.0); Hemoglobin 9.2 g/dL (13.5-17.5); IMMATURE GRAN ABSOLUTE AUTO 0.21 K/mm3 (0.00-0.10); IMMATURE GRAN PERCENT AUTO 1 % (0-1); LYMPHOCYTES ABSOLUTE AUTO 1.75 K/mm3 (0.84-5.20); LYMPHOCYTES PERCENT AUTO 7 % (21-46); MONOCYTES ABSOLUTE AUTO 1.73 K/mm3 (0.16-1.47); MONOCYTES PERCENT AUTO 7 % (4-13); Mean Corpuscular HGB Conc 31.9 g/dL (31.5-36.5); Mean Corpuscular Volume 88 fL (80-100); Mean Platelet Volume 9.7 fL (9.1-12.4); NEUTROPHILS ABSOLUTE AUTO 20.94 K/mm3 (1.96-9.15); NEUTROPHILS PERCENT AUTO 84 % (41-73); Platelet Count 435 K/mm3 (150-400); RDW Coefficient Variation 14.4 % (11.7-14.2); RDW Standard Deviation 46.3 fL (35.1-46.3); Red Blood Cell Count 3.28 M/mm3 (4.30-5.90); White Blood Cell Count 24.81 K/mm3 (4.00-11.30)
[2024-05-12 05:21] LABS: International Normalized Ratio 1.11; Prothrombin Time Results 11.8 Sec (9.7-11.5)
[2024-05-12 05:31] LABS: Magnesium, Blood 2.1 mg/dL (1.6-2.4)
[2024-05-12 05:32] LABS: Albumin, Blood 1.7 g/dL (3.4-5.0); Albumin/Globulin Ratio 0.3 (0.8-1.8); Bilirubin, Total 0.5 mg/dL (0.1-1.0); Bun/Creatinine Ratio 20.7 (12.0-20.0); Calcium, Blood 8.6 mg/dL (8.5-10.1); Creatinine, Blood 1.4 mg/dL (0.60-1.20); Globulin, Blood 4.9 g/dL (2.2-4.0); Total Protein, Blood 6.6 g/dL (6.4-8.2)
[2024-05-12] MEDS ORDERED: Omeprazole 20 MG CapCR PO SCH (06:00)
[2024-05-12] MEDS ORDERED: Vancomycin HCL 1,000 MG in NS 250 ML IV SCH (09:00)
[2024-05-12] MEDS ORDERED: Lactated Ringer's 1,000 ML IV SCH ×2 (12:00→14:30)
--- NOTE | 2024-05-12 14:29 | NUR ---
PATIENT TAKEN DOWN FOR SURGERY VIA [facility] FAMILY ACCOMPANIED PATIENT DOWN TO PREOP
[2024-05-12] MEDS ORDERED: Citric Acid/Sodium Citrate 30 ML BTL PO ONE (14:50)
[2024-05-12] MEDS ORDERED: Metoclopramide HCl 5MG / ML 2ML Vial IV ONE (14:50)
[2024-05-12] MEDS ORDERED: Lidocaine HCl 2% 10 ML SDA ONE (15:04)
[2024-05-12] MEDS ORDERED: Bupivacaine 0.5% HCl 5 MG/ML 30MLVIAL ONE (15:04)
[2024-05-12] MEDS ORDERED: propofoL 20 ML IV ONE ×2 (15:12→15:56)
[2024-05-12] MEDS ORDERED: FentaNYL Citrate 50 MCG/ML 2 ML Injection ONE (15:23)
--- NOTE | 2024-05-12 16:22 | NUR ---
05/12/24 1622 Noemi Mcdaniel PATIENT ON SCHEDULED ANTIBIOTICS, SEE EMAR. NO INTRAOPERATIVE ANTIBIOTICS ORDERED.
--- NOTE | 2024-05-12 16:54 | NUR ---
PATIENT A/O X 2. PATIENT HAS DEMENTIA AT BASELINE. 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 PATIENT HAS IV IN RIGHT FOREARM WITH LACTATED RINGERS RUNNING AT 125/HR UNTIL SURGERY. PATIENT COOPERATIVE WITH CARE.
[2024-05-12 21:35] LABS: Vancomycin, Trough 19.9 ug/mL (5.0-10.0)
[2024-05-13] MEDS ORDERED: Vancomycin HCL 750 MG in NS 250 ML IV SCH (02:00)
[2024-05-13 02:12] VITALS: BP 130/71
--- NOTE | 2024-05-13 04:31 | NUR ---
A&OX3, VSS, DENIED PAIN T/O SHIFT, SLEEPING AT THIS TIME, WILL CONT TO MONITOR UNTIL REPORT GIVEN TO ONCOMING NURSE.
[2024-05-13 05:01] LABS: BASOPHILS ABSOLUTE AUTO 0.04 K/mm3 (0.00-0.23); BASOPHILS PERCENT AUTO 0 % (0-2); EOSINOPHILS PERCENT AUTO 0 % (0-6); IMMATURE GRAN ABSOLUTE AUTO 0.19 K/mm3 (0.00-0.10); IMMATURE GRAN PERCENT AUTO 1 % (0-1); LYMPHOCYTES ABSOLUTE AUTO 0.84 K/mm3 (0.84-5.20); LYMPHOCYTES PERCENT AUTO 4 % (21-46); MONOCYTES ABSOLUTE AUTO 0.42 K/mm3 (0.16-1.47); MONOCYTES PERCENT AUTO 2 % (4-13); Mean Corpuscular HGB 28.3 pg (26.0-34.0); Mean Corpuscular HGB Conc 32.1 g/dL (31.5-36.5); Mean Corpuscular Volume 88 fL (80-100); Mean Platelet Volume 9.5 fL (9.1-12.4); NEUTROPHILS ABSOLUTE AUTO 20.45 K/mm3 (1.96-9.15); NEUTROPHILS PERCENT AUTO 93 % (41-73); Platelet Count 440 K/mm3 (150-400); RDW Coefficient Variation 14.2 % (11.7-14.2); RDW Standard Deviation 46.1 fL (35.1-46.3); Red Blood Cell Count 3.18 M/mm3 (4.30-5.90); White Blood Cell Count 21.94 K/mm3 (4.00-11.30)
[2024-05-13 05:30] LABS: Bun/Creatinine Ratio 25.7 (12.0-20.0); Calcium, Blood 8.7 mg/dL (8.5-10.1); Creatinine, Blood 1.09 mg/dL (0.60-1.20); Potassium, Blood 4.7 mmol/L (3.5-5.5)
[2024-05-13 07:22] VITALS: BP 133/66
[2024-05-13] MEDS ORDERED: Insulin Human Lispro 100 Units/ML 3ML Syringe SC SCH (07:30)
[2024-05-13 15:16] VITALS: BP 162/87
--- NOTE | 2024-05-13 18:23 | NUR ---
NO ACUTE CHANGES. DR. CLAYTON AT BEDSIDE EARLIER TO CHANGE DRESSING ON LLE. MD WILL REASSESS TOMORROW. PLAN TO XRAY RIGHT FOOT TOMORROW. CBG TREATED PER EMAR. PT INCREASED APPETITE. NON WEIGHT BEARING ON LLE. PT CALLS APPROPRIATELY
[2024-05-13 19:37] VITALS: BP 140/79
[2024-05-13] MEDS ORDERED: Docusate Sodium 100 MG Cap PO SCH (21:00)
[2024-05-13] MEDS ORDERED: Arginine/Glutamine/Calcium Hmb 1 Packet PO SCH (21:00)
[2024-05-13] MEDS ORDERED: Sennosides 8.6 MG Tab PO SCH (21:00)
[2024-05-14] VITALS (11 sets, daily range): BP systolic 109–148; BP diastolic 67–80
[2024-05-14] MEDS ORDERED: NS 250 ML IV PRN (03:55)
[2024-05-14 05:58] LABS: BASOPHILS ABSOLUTE AUTO 0.08 K/mm3 (0.00-0.23); BASOPHILS PERCENT AUTO 0 % (0-2); EOSINOPHILS ABSOLUTE AUTO 0.16 K/mm3 (0.00-0.68); EOSINOPHILS PERCENT AUTO 1 % (0-6); Hematocrit 28.6 % (37.0-53.0); Hemoglobin 9.1 g/dL (13.5-17.5); IMMATURE GRAN ABSOLUTE AUTO 0.17 K/mm3 (0.00-0.10); IMMATURE GRAN PERCENT AUTO 1 % (0-1); LYMPHOCYTES ABSOLUTE AUTO 2.12 K/mm3 (0.84-5.20); LYMPHOCYTES PERCENT AUTO 11 % (21-46); MONOCYTES ABSOLUTE AUTO 1.07 K/mm3 (0.16-1.47); MONOCYTES PERCENT AUTO 6 % (4-13); Mean Corpuscular HGB Conc 31.8 g/dL (31.5-36.5); Mean Corpuscular Volume 88 fL (80-100); Mean Platelet Volume 9.3 fL (9.1-12.4); NEUTROPHILS ABSOLUTE AUTO 15.34 K/mm3 (1.96-9.15); NEUTROPHILS PERCENT AUTO 81 % (41-73); Platelet Count 486 K/mm3 (150-400); RDW Coefficient Variation 14.2 % (11.7-14.2); RDW Standard Deviation 45.7 fL (35.1-46.3); Red Blood Cell Count 3.25 M/mm3 (4.30-5.90); White Blood Cell Count 18.94 K/mm3 (4.00-11.30)
--- NOTE | 2024-05-14 06:08 | NUR ---
AAOX3, NEEDS RE-ORIENTED TO TIME/DATE. PT HAD A RESTLES NIGHT, MAYBE 1-2 HRS OF SLEEP. ENCOURAGED TO STAY AWAKE TODAY, NO NAPPING. NEUROPATHY/NO FEELING TO MID BE. USES URINAL IN BED, MISSES URIANL OFTEN. X-RAY OF R FOOT TODAY, CHECKING FOR OSTEOMYLITIS. WOUND VAC IN ROOM TO BE PUT ON AFTER ASSESS L FOOT. L FOOT GAUZE ROLL AND EDENILSON, CDI.
[2024-05-14 06:22] LABS: Bun/Creatinine Ratio 32.4 (12.0-20.0); Calcium, Blood 8.8 mg/dL (8.5-10.1); Creatinine, Blood 1.08 mg/dL (0.60-1.20); Potassium, Blood 4.2 mmol/L (3.5-5.5)
[2024-05-14] MEDS ORDERED: Atorvastatin 40 MG Tab PO SCH (09:00)
[2024-05-14] MEDS ORDERED: Fenofibrate, Micronized 134 MG Capsule PO SCH (09:00)
[2024-05-14] MEDS ORDERED: Empagliflozin 25 MG TAB PO SCH (09:00)
[2024-05-14] MEDS ORDERED: DULoxetine HCL 60 MG Capsule DR PO SCH (09:00)
[2024-05-14] MEDS ORDERED: Gabapentin 300 MG Cap PO SCH (09:00)
--- NOTE | 2024-05-14 11:32 | NUR ---
PT CURRENTLY NPO, DR. PULIDO AT BEDSIDE TO DISCUSS PROCEDURE WITH PT. PLAN FOR PROCEDURE TODAY
[2024-05-14] MEDS ORDERED: Insulin Regular 100 UNIT/ML 10ML Vial SC SCH ×2 (12:00→16:30)
[2024-05-14] MEDS ORDERED: NS 250 ML IV ONE (13:13)
[2024-05-14] MEDS ORDERED: NS 1,000 ML IV ONE ×2 (13:14→13:33)
[2024-05-14] MEDS ORDERED: Heparin Sodium 1000 Units/ML 10ML MDV ONE ×2 (13:14→13:54)
[2024-05-14 13:22] LABS: Vancomycin, Trough 19.8 ug/mL (5.0-10.0)
[2024-05-14] MEDS ORDERED: Midazolam HCl 1MG / ML 2ML Vial ONE (13:32)
[2024-05-14] MEDS ORDERED: FentaNYL Citrate 50 MCG/ML 2 ML Injection ONE (13:32)
--- NOTE | 2024-05-14 13:47 | NUR ---
PT WENT FOR VASCULAR PROCEDURE, ALERT AND ORIENTED X4, TRANSPORTED IN BED.
[2024-05-14] MEDS ORDERED: Nitroglycerin 2 MG/20 ML BTL ONE (14:02)
--- NOTE | 2024-05-14 14:33 | NUR ---
REPORT GIVEN TO AUTOMOTIVE MECHANICAL ENGINEER. PT WILL BE GOING TO PCU 18, ATTEMPTED TO CALL FAMILY, NO ANSWER. IS AWARE THAT PT WILL BE CHANGING ROOMS AFTER PROCEDURE. PERSONAL ITEMS INCLUDING WOUND VAC TAKEN TO 2ND FLOOR ROOM IS CURRENTLY BEING CLEANED.
--- NOTE | 2024-05-14 15:05 | NUR ---
SPOKE WITH SPOUSE ON PHONE, UPDATED ON NEW PT ROOM. PCU 18
--- NOTE | 2024-05-14 15:52 | NUR ---
PATIENT IS A THRANSFER FROM MEDICAL FLOOR. WENT TO BACK LINE COOK THEN ARRIVED TO PCU ROOM 18 VIA BED. PATIENT TO BRING IN HOME MEDICATIONS TOMORROW TO ENSURE WE HAVE AN ACCURATE MEDICATION LIST. CALL LIGHT IN REACH, WILL CONTINUE TO TREAT.
[2024-05-14] MEDS ORDERED: Vancomycin HCL 750 MG in NS 250 ML IV SCH (16:00)
--- NOTE | 2024-05-14 16:58 | NUR ---
NURSE NOTE PATIENT SITTING UP IN BED AT 45 DEGREES. GROIN SITE FREE OF REDNESS, PAIN, OR HEMATOMA. PATIENT TOLERATING WATER. REMAINS A+O X4, ABLE TO MAKE NEEDS KNOW. CALL LIGHT IN REACH OF PATIENT, WILL CONTINUE TO TREAT.
--- NOTE | 2024-05-14 17:44 | NUR ---
SHIFT SUMMARY PATIENT IS A+OX4, ABLE TO MAKE NEEDS KNOWS, MOVES ALL EXTERMITIES EQUALLY IN BED. MALE EXTERNAL PURWIK IN PLACE DRAINING YELLOW COLORED URINE TO SUCTION. PATIENT REMAINS ON TELE WITH STABLE VITALS. GROIN SIGHT REMAINS FREE OF PAIN/REDNESS/TENDERNESS AND HEMATOMA. PATIENT SITTING UP IN BED FOR DINNER. CALL LIGHT IN REACH OF PATIENT, WILL CONTINUE TO TREAT UNTIL END OF SHIFT.
[2024-05-14] MEDS ORDERED: Ciprofloxacin 400MG/D5 200ML 200 ML IV SCH (18:00)
[2024-05-15] VITALS (7 sets, daily range): BP systolic 110–150; BP diastolic 64–83
[2024-05-15 04:06] LABS: BASOPHILS ABSOLUTE AUTO 0.06 K/mm3 (0.00-0.23); BASOPHILS PERCENT AUTO 0 % (0-2); EOSINOPHILS ABSOLUTE AUTO 0.28 K/mm3 (0.00-0.68); EOSINOPHILS PERCENT AUTO 2 % (0-6); Hematocrit 31.1 % (37.0-53.0); IMMATURE GRAN ABSOLUTE AUTO 0.17 K/mm3 (0.00-0.10); IMMATURE GRAN PERCENT AUTO 1 % (0-1); LYMPHOCYTES ABSOLUTE AUTO 1.56 K/mm3 (0.84-5.20); LYMPHOCYTES PERCENT AUTO 11 % (21-46); MONOCYTES ABSOLUTE AUTO 0.92 K/mm3 (0.16-1.47); MONOCYTES PERCENT AUTO 7 % (4-13); Mean Corpuscular HGB 27.8 pg (26.0-34.0); Mean Corpuscular HGB Conc 32.2 g/dL (31.5-36.5); Mean Corpuscular Volume 86 fL (80-100); Mean Platelet Volume 9.5 fL (9.1-12.4); NEUTROPHILS ABSOLUTE AUTO 10.74 K/mm3 (1.96-9.15); NEUTROPHILS PERCENT AUTO 78 % (41-73); Platelet Count 466 K/mm3 (150-400); RDW Coefficient Variation 14.3 % (11.7-14.2); RDW Standard Deviation 45.2 fL (35.1-46.3); White Blood Cell Count 13.73 K/mm3 (4.00-11.30)
[2024-05-15 04:20] LABS: Bun/Creatinine Ratio 35.4 (12.0-20.0); Calcium, Blood 8.8 mg/dL (8.5-10.1); Creatinine, Blood 0.93 mg/dL (0.60-1.20); Potassium, Blood 4.3 mmol/L (3.5-5.5)
--- NOTE | 2024-05-15 06:12 | NUR ---
SHIFT SUMMARY PATIENT SLEPT MOST OF THE NIGHT.HE HAD 6 BEAT RUN OF VTACH,PT ASYMPTOMATIC ON ASSESSMENT.PT HAD A TMAX OF 99,HR IRREGULAR 9'S-105BPM. NOTIFIED.NO NEW ORDERS GIVEN.IV ANTIBIOTICS ADMINISTERED ORDERED.DENIES PAIN,DENIES NEEDS.WILL CONTINUE TO MONITOR.
[2024-05-15] MEDS ORDERED: Losartan Potassium 50 MG Tab PO SCH (09:00)
[2024-05-15] MEDS ORDERED: QUET25 PO (11:30)
[2024-05-15] MEDS ORDERED: THERA-D2000 UNIT PO (11:31)
[2024-05-15] MEDS ORDERED: PRESERVISION A1 EAC1 PO (11:32)
--- NOTE | 2024-05-15 11:52 | NUR ---
AM NOTE this rn assumed care at 0700. vital signs stable. tele sinus rhythm 80s. spo2 >95% on room air. patient is alert and oriented x4. patient is able to make needs known and uses call light appropriately. patient denies pain, chest pain/pressure or shortness of breath. patient as a left pinky toe amputation that dressing was changed and repacked, due to not having the materials at the time of dressing change. new photos in the chart. patient right foot has scabs that were cleaned per wound care orders. patient has scabs to left forarm and redness to bottom with mepilex in place. see shift assessment for further detials. md patel called due to not having the white foam at the time and said it is okay to put hydrogel into the tunnel so its touching the bone and ligament with the black foam. white foam was able to be received and wound vac will be placed on today. md wardten in to see patient and also spoke with . discussed plan of care. plan to continue iv abx, wound care as ordered, and once cleared by md patel to begin working with therapies.
--- NOTE | 2024-05-15 17:57 | NUR ---
shift summary patient vitals remain stable. tele sinus rhythm 90s. patient neuro remains intact. patient off and on sleeping throughout the day and easy to arouse. patient has wound vac in place. patient has two white foam pieces, one that is going into the tunnel, and one that is on the ligament, and then black foam on top. see wound vac intervention. spoke with family today and updated. patient aware of plan. no acute changes.
[2024-05-16 03:40] VITALS: BP 149/69
[2024-05-16] MEDS ORDERED: Pantoprazole Sodium 40 MG Tab PO SCH (06:00)
--- NOTE | 2024-05-16 06:43 | NUR ---
END OF SHIFT NOTE PT HAS BEEN AWAKE MOST OF THE NIGHT,SLEEPING AT THIS TIME.NO CHANGES IN ASSESSMENT NOTED THROUGHOUT THE NIGHT.WOUND VAC IN PLACE AND INTACT.NO DRAINAGE COLLECTION NOTED IN THE WOUND VAC CANNISTER.NO C/O PAIN/DISCOMFORT THROUGHOUT THE NIGHT.WILL CONTINUE TO MONITOR.
[2024-05-16 08:02] VITALS: BP 167/86
[2024-05-16] MEDS ORDERED: Clopidogrel Bisulfate 75 MG Tab PO SCH (09:00)
[2024-05-16] MEDS ORDERED: Clindamycin HCl 150 MG Cap PO SCH (09:00)
[2024-05-16] MEDS ORDERED: Ciprofloxacin 500 MG Tab PO SCH (09:00)
[2024-05-16] MEDS ORDERED: Aspirin 81 MG Chew PO SCH (09:00)
--- NOTE | 2024-05-16 11:03 | NUR ---
AM NOTE: PATIENT ALERT AND ORIENTED X3-4. PERRLA, WEARING GLASSES. DENIES PAINS. BLE NEUROPATHY WITH WOUND VAC TO LEFT PINKY TOE AT 120 MMHG. WOUNDS TO RIGHT TOES, SEE WOUND CARE ORDERS. TELE SHOWING SINUS RHYTHM/SINUS TACH WITH HR 80-100'S. PATIENT MADE MEDICAL STATUS NO TELE THIS AM, TELE REMOVED. SBP 160'S. DENIES CHEST PAIN/PRESSURE/PAPLIATIONS. PPP. IV SALINE LOCKED. ON ROOM AIR SATING ABOVE 95%. DENIES SOB/COUGH. LUNG SOUNDS CLEAR AND DIM IN BASES. EVEN AND UNLABORED RESPIRTATIONS. BOWEL TONES PRESENT IN ALL 4 QUARDRANTS. TOLERATING PO DIET. DENIES ISSUES WITH SWALLOWING. USING URINAL TO VOID. ATTENDS IN PLACE. PATIENT HAD LARGE BROWN BOWEL MOVEMENT THIS AM. PATIENT TALKING ON PHONE WITH THIS AM. DENIES NEEDS AT THIS TIME. SITTING IN BED WATCHING TV. CALL LIGHT IN REACH.
[2024-05-16 11:11] VITALS: BP 140/62
[2024-05-16 16:18] VITALS: BP 129/71
--- NOTE | 2024-05-16 18:40 | NUR ---
SHIFT SUMMARY: NO ACUTE CHANGES, SEE PREVIOUS NOTE. ALERT AND ORIENTED X4. REMAINS ON ROOM AIR. VITAL SIGNS STABLE. WOUND VAC REMAINS IN PLACE WITH NO LEAKS. DRESSING C/D/I. RIGHT FOOT DRESSING CHANGED THIS SHIFT. SON AT BEDSIDE THIS AFTERNOON TO VISIT. ACHS BLOOD SUGAR CHECKS. PATIENT TURNING SELF IN BED. USING URINAL TO VOID. CALL LIGHT IN REACH.
[2024-05-16 19:34] VITALS: BP 131/74
--- NOTE | 2024-05-16 21:15 | NUR ---
ASSUMPTION OF CARE ASSUMMED PT'S CARE AT 1900.PT LYING IN BED WITH EYES OPEN.WOUND VAC PROVIDING THERAPY ORDERED,SMALL AMOUNT OF SEROSANGUINEOUS DRAINAGE NOTED IN CANNISTER.DRESSING TO RIGHT FOOT CDI.PT DENIES PAIN DENIES NEEDS.WILL CONTINUE TO MONITOR.
--- NOTE | 2024-05-16 23:08 | NUR ---
@2240: REPORT RECEIVED FROM [facility] NURSE CASPER. @ 2300 PT ARRIVED AND REMAINED IN THE SAME HOSPITAL BED. PT BROUGHT ALL HIS BELONGINGS WITH HIM. PT IS A&O X4, ABLE TO MAKE HIS NEEDS KNOWN. PT DENIES PAIN AND DISCOMFORT. WOUND VAC ON LEFT FOOT INTACT AND SUCTION, THERAPY SETTING @120. SMALL AMOUNT OF SERASANGUINEOUS FLUID NOTED. RIGHT FOOT DRESSING C/D/I. PT HAS NO CONCERNS AT THIS TIME. LEGS ELEVATED WITH A PILLOW.
[2024-05-17 03:57] VITALS: BP 137/69
[2024-05-17 07:07] VITALS: BP 149/74
--- NOTE | 2024-05-17 08:13 | NUR ---
PATIETN SLEEPING, WOUND VAC ON, CALL LIGHT WITH IN REACH
[2024-05-17 15:22] VITALS: BP 120/62
--- NOTE | 2024-05-17 18:26 | NUR ---
ALERT AND ORIENTED X4, FAMILY VISITED, CLEARLY MAKES NEEDS KNOWN, PATIENT PULLED WOUND VAC AND RIGHT FOOT DRESSING OFF ON ACCIDENT WHILE SLEEPING. WOUND VAC REINFORCED AND WORKING, NO DRAINAGE FROM LEFT OR RIGHT FOOT WOUNDS. CASE MANAGEMENT WORKING ON SNF VS HOME WITH PO ANTIBIOTICS, BC NEGATIVE, CALL LIGHT WITH IN REACH, WILL RELAY TO PM RN
[2024-05-17 19:34] VITALS: BP 115/86
[2024-05-17] MEDS ORDERED: Insulin Glargine-Yfgn 100 Unit/mL 3 ML SYR SC SCH (21:00)
--- NOTE | 2024-05-18 03:58 | NUR ---
SHIFT SUMMARY NO ACUTE EVENTS DURING THIS SHIFT. WOUND VAC INTACT, OUTPUT SMALL AMOUNT OF SEROSANGUINOUS FLUID. PT DENIES PAIN AND DISCOMFORT. RIGHT FOOT OPEN TO AIR, NO DRAINAGE NOTED. HS B. PLAN TO D/C TO SNF WITH PO ABX'S. PT IS A&O X3-4, ABLE TO MAKE HIS NEEDS KNOWN AND COOPERATIVE WITH CARE. PT REMAINED IN BED T/O THIS SHIFT, USING URINAL OUTPUT>1L LIGHT YELLOW COLOR URINE. BED AT THE LOWEST POSITION, CALL LIGHT WITHIN REACH.
[2024-05-18 04:08] VITALS: BP 149/74
[2024-05-18 07:11] VITALS: BP 136/73
--- NOTE | 2024-05-18 12:04 | NUR ---
CALLED DR. HARRIS TO CONFIRM HOME MED REC FOR DISCHARGE. DR. HARRIS STATES ALLERGY TO CEFDINIR NOT CLINICALY SIGNIFICANT AND TO CONTINUE WITH ORDER PATIENT TOLERATED CEFTRIAXONE WITHOUT ANY REACTION. ALSO STATES TO DISCONTINUE CELEXA.
[2024-05-18] MEDS ORDERED: Fenofibrate134 MG PO (13:42)
[2024-05-18] MEDS ORDERED: HUMULIN R100 UNIT/2 SC (13:43)
[2024-05-18 15:40] VITALS: BP 110/58
[2024-05-18] MEDS ORDERED: Vancomycin HCL 2,000 MG in NS 500 ML IV ONE (16:45)
--- NOTE | 2024-05-18 18:47 | NUR ---
SHIFT SUMMARY PATIENT A/OX2, PELASANT ADN COOPERATIVE WITH CARE. NEW IV PLACED VIA ULTRASOUND TO RIGHT FOREARM. DISCHAREG ORDERS RECIEVED THIS EVENING, ORTHO CAME TO BEDSIDE AND STATED PATIENT WILL NEED TO DISCHAREG WITH IV ABX FOR 6 WEEKS. DISCHARGE POSTPONED PATIENT WILL NEED PICC PLACED AND SNF PLACEMENT. FAMILY AND PATIENT AWARE OF DISCHAREG PLANS ADN AGREEABLE. WOOUND VAC IN PLACE TO LEFT TOE AMPUTATION. NO OTHER COCNERNS AT SI TIME.
[2024-05-18 19:47] VITALS: BP 125/60
[2024-05-18] MEDS ORDERED: Ciprofloxacin 500 MG Tab PO SCH (21:00)
[2024-05-19 02:40] VITALS: BP 148/74
--- NOTE | 2024-05-19 04:00 | NUR ---
SHIFT SUMMARY: PT IS A PLESANT 74 YO FULL CODEWHO WAS ADMITTED FOR ACUTE OSTEOMELITIS. THE PT HAS BEEN RESTING MOST OF THE NIGHT. PT DOES NOT REALLY USE CALL LIGHT AND IS COMPLETELY INCONT TO URINE AND BOWEL. PT HAD A BED CHANGE AT THE BEGINNING OF THE SHIFT AND HAS A WOUND VAC ON THE PT'S L FOOT. PT ALSO HAS A WOUND INBETWEEN TOES ON R FOOT. I CHANGED THE PT'S MEPILEX ON THERE BUT AND GAVE TJ CARE/CATH CARE. PT HAS CALL LIGHT CLOSE AND BED ALARM SET.
[2024-05-19] MEDS ORDERED: Vancomycin HCL 750 MG in NS 250 ML IV SCH (06:00)
[2024-05-19 06:10] LABS: Creatinine, Blood 1.1 mg/dL (0.60-1.20)
[2024-05-19 07:02] VITALS: BP 160/86
[2024-05-19 15:13] VITALS: BP 138/68
--- NOTE | 2024-05-19 18:03 | NUR ---
SHIFT SUMMARY PATIENT A/OX2-3, INTERMITTENTLY DISORIENTED TO PLACE AND SITUATION BUT EASY TO REORIENT. PLEASANT AND COOPERATIVE WITH CARE. DAILY WOUND CARE PROVIDED TO RIGHT FOOT DIABETIC FOOT WOUNDS. WOUND VAC IN PLACE TO LEFT 5TH TOE AMPUTATION, SEROSANGUINOUS DRAINAGE NOTED. FAMILY AT BEDSIDE THIS MORNING. PATIENT PARTICIPATED IN PHYSICAL THERAPY. PATIENT NOT ADHERING TO NWB STATUS TO LEFT LEG DESPITE CONTINUED EDUCATION. PLAN TO DISCHARGE TO GROUP HOME FACILITY PATIENT IS NEEDING 6 WEEKS IV ANTIBIOTICS. PICC NEEDS TO BE PLACED PRIOR TO DISCHARGE. NO OTHER CONCERNS AT THIS TIME.
[2024-05-19 19:22] VITALS: BP 105/93
[2024-05-20 03:12] VITALS: BP 161/77
--- NOTE | 2024-05-20 06:21 | NUR ---
SHIFT SUMMARY 74 YR M ADMITTED ON 05/11/24. FULL CODE. NO ACUTE CHANGES THIS SHIFT. PT HAS HAD NO C/O PAIN OR DISCOMFORT THIS SHIFT. HE HAD A LARGE INCONTINENT BM AND URINE. GROIN AREA IS RED AND POWDER WAS APPLIED. FOOT WOUND BANDAGES ARE C/D/I. WOUND VAC ON RIGHT FOOT IS WORKING WELL. BED IS IN LOW POSITION AND CALL LIGHT IN REACH.
[2024-05-20 07:19] VITALS: BP 153/76
[2024-05-20 07:54] LABS: Vancomycin, Trough 21.8 ug/mL (5.0-10.0)
[2024-05-20] MEDS ORDERED: Vancomycin HCL 500 MG in NS 250 ML IV SCH (08:00)
[2024-05-20 15:55] VITALS: BP 133/68
--- NOTE | 2024-05-20 18:17 | NUR ---
SUMMARY- PT A/OX3, PLEASANT AND COOPERATIVE. BEDREST THIS SHIFT,SAT AT THE EDGE OF THE BED WITH PHISICAL THERAPY. INCONT URINE, ATTENDS IN USE, PLACED MALE PUREWICK THIS AFTERNOON WHICH IS WORKING EFFECTIVELY. PT DENIES PAIN IN FEET RELATED TO NEUROPATHY. WOUND VAC WORKING WELL. CHANGED WOUND VAC DRESSING 1630 TODAY. TOLERATING 25-50% OF MEALS, PT FEEDS SELF WITH SET UP. PT HAS SUPPLEMENTAL PROTEIN VÍCTOR ORDERED. BLOOD SUGARS 200'S, COVERED WITH SSI. WILL REPORT TO NOC RN
[2024-05-20 19:24] VITALS: BP 149/98
[2024-05-21 04:34] VITALS: BP 170/98
--- NOTE | 2024-05-21 05:13 | NUR ---
SHIFT SUMMARY: Pt is admitted for acute osteomyelitis and is a full code. Is alert and able to make most needs known. ADLs have been mostly 1 during shift. Denies pain or discomfort when asked.
[2024-05-21 07:22] VITALS: BP 158/68
[2024-05-21 14:51] VITALS: BP 170/98
[2024-05-21 19:18] VITALS: BP 130/77
--- NOTE | 2024-05-21 19:23 | NUR ---
SHIFT SUMMARY: PT IS A/O X 3, PT REFUSED TO GET OOB TO CHAIR TODAY. PLEASANT WITH CARE. PT HAD NO COMPLAINTS THROUGHOUT THE DAY. DID C/O MILD COUGH IN THE EVENING. LS CONTINUE TO BE CLEAR THROUGHOUT. NO OTHER COMPLAINTS.
[2024-05-21 20:09] LABS: Creatinine, Blood 1.12 mg/dL (0.60-1.20); Vancomycin, Trough 17.3 ug/mL (5.0-10.0)
[2024-05-21] MEDS ORDERED: Insulin Glargine-Yfgn 100 Unit/mL 3 ML SYR SC SCH (21:00)
[2024-05-22 03:28] VITALS: BP 161/86
[2024-05-22 05:20] LABS: BASOPHILS ABSOLUTE AUTO 0.08 K/mm3 (0.00-0.23); BASOPHILS PERCENT AUTO 1 % (0-2); EOSINOPHILS ABSOLUTE AUTO 0.28 K/mm3 (0.00-0.68); EOSINOPHILS PERCENT AUTO 2 % (0-6); Hematocrit 32.1 % (37.0-53.0); Hemoglobin 10.2 g/dL (13.5-17.5); IMMATURE GRAN ABSOLUTE AUTO 0.15 K/mm3 (0.00-0.10); IMMATURE GRAN PERCENT AUTO 1 % (0-1); LYMPHOCYTES ABSOLUTE AUTO 1.16 K/mm3 (0.84-5.20); LYMPHOCYTES PERCENT AUTO 10 % (21-46); MONOCYTES ABSOLUTE AUTO 0.79 K/mm3 (0.16-1.47); MONOCYTES PERCENT AUTO 7 % (4-13); Mean Corpuscular HGB 27.9 pg (26.0-34.0); Mean Corpuscular HGB Conc 31.8 g/dL (31.5-36.5); Mean Corpuscular Volume 88 fL (80-100); Mean Platelet Volume 9.6 fL (9.1-12.4); NEUTROPHILS ABSOLUTE AUTO 9.36 K/mm3 (1.96-9.15); NEUTROPHILS PERCENT AUTO 79 % (41-73); Platelet Count 376 K/mm3 (150-400); Red Blood Cell Count 3.66 M/mm3 (4.30-5.90); White Blood Cell Count 11.82 K/mm3 (4.00-11.30)
[2024-05-22 05:49] LABS: Albumin/Globulin Ratio 0.4 (0.8-1.8); Bilirubin, Total 0.4 mg/dL (0.1-1.0); Bun/Creatinine Ratio 19.8 (12.0-20.0); Calcium, Blood 9.4 mg/dL (8.5-10.1); Creatinine, Blood 1.06 mg/dL (0.60-1.20); Potassium, Blood 3.6 mmol/L (3.5-5.5)
--- NOTE | 2024-05-22 06:40 | NUR ---
SHIFT SUMMARY: Pt is admitted for acute osteomyelitis and is a full code. Is alert and able to make most needs known. ADLs have been mostly 1 during shift. Denies pain or discomfort when asked. Wound vac to left foot intact.
[2024-05-22 07:42] VITALS: BP 136/69
[2024-05-22] MEDS ORDERED: Vancomycin HCL 1,250 MG in NS 250 ML IV SCH (08:00)
[2024-05-22] MEDS ORDERED: Losartan Potassium 50 MG Tab PO SCH (09:00)
[2024-05-22] MEDS ORDERED: CIPR500 PO (10:49)
[2024-05-22] MEDS ORDERED: VANCOMYCIN IV (10:56)
[2024-05-22 11:13] LABS: CORONAVIRUS COVID-19 AG Negative (NEGATIVE)
--- NOTE | 2024-05-22 14:02 | NUR ---
report given to Renu de santiago [facility].
--- NOTE | 2024-05-22 15:17 | NUR ---
discharge summary: pt discharged to [facility]. pt tx to wheelchair transport via [facility]. pt belongings sent with transport company.
== END 2024-05-22 14:45 | DRG 616 ==
LOC: ER 14:01 → MEDS 21:07 → PCU 21:07 → ERHOLD 21:07 → MEDS 23:02 → PCU 05-14 14:51 → MEDS 05-16 22:58 → ENPENDDIS 05-22 10:36 → MEDS 05-22 14:45
PROVIDERS: Internal Medicine; Nurse Practitioner Acute Care; Physician Assistant; Podiatrist Foot & Ankle Surgery; Student in an Organized Health Care Education/Training Program; ADMIT Internal Medicine
PROC: 0Y6N0ZF Detachment at Left Foot, Partial 5th Ray, Open Approach (ICD-10-PCS; principal; 2024-05-12 15:00)
PROC: 047U3ZZ Dilation of Left Peroneal Artery, Percutaneous Approach (ICD-10-PCS; 2024-05-14)
PROC: 047S3ZZ Dilation of Left Posterior Tibial Artery, Percutaneous Approach (ICD-10-PCS; 2024-05-14)
PROC: 047Q3ZZ Dilation of Left Anterior Tibial Artery, Percutaneous Approach (ICD-10-PCS; 2024-05-14)
PROC: B41D1ZZ Fluoroscopy of Aorta and Bilateral Lower Extremity Arteries using Low Osmolar Contrast (ICD-10-PCS; 2024-05-14)
PROC: 02HV33Z Insertion of Infusion Device into Superior Vena Cava, Percutaneous Approach (ICD-10-PCS; 2024-05-22)
DX: E11.69 Type 2 diabetes mellitus with other specified complication (principal); A48.0 Gas gangrene; M86.172 Other acute osteomyelitis, left ankle and foot; E11.52 Type 2 diabetes mellitus with diabetic peripheral angiopathy with gangrene; I70.262 Atherosclerosis of native arteries of extremities with gangrene, left leg; L02.612 Cutaneous abscess of left foot; B95.61 Methicillin susceptible Staphylococcus aureus infection as the cause of diseases classified elsewhere; B96.89 Other specified bacterial agents as the cause of diseases classified elsewhere; G47.33 Obstructive sleep apnea (adult) (pediatric); E78.5 Hyperlipidemia, unspecified; I25.10 Atherosclerotic heart disease of native coronary artery without angina pectoris; E11.22 Type 2 diabetes mellitus with diabetic chronic kidney disease; I12.9 Hypertensive chronic kidney disease with stage 1 through stage 4 chronic kidney disease, or unspecified chronic kidney disease; N18.30 Chronic kidney disease, stage 3 unspecified; K21.9 Gastro-esophageal reflux disease without esophagitis; E11.42 Type 2 diabetes mellitus with diabetic polyneuropathy; F03.90 Unspecified dementia, unspecified severity, without behavioral disturbance, psychotic disturbance, mood disturbance, and anxiety; E11.65 Type 2 diabetes mellitus with hyperglycemia; D64.9 Anemia, unspecified; D75.839 Thrombocytosis, unspecified; L97.524 Non-pressure chronic ulcer of other part of left foot with necrosis of bone; E11.621 Type 2 diabetes mellitus with foot ulcer; Z99.89 Dependence on other enabling machines and devices; Z88.0 Allergy status to penicillin; Z88.2 Allergy status to sulfonamides; Z95.1 Presence of aortocoronary bypass graft; Z88.8 Allergy status to other drugs, medicaments and biological substances; Z79.84 Long term (current) use of oral hypoglycemic drugs; Z79.4 Long term (current) use of insulin; Z79.85 Long-term (current) use of injectable non-insulin antidiabetic drugs; Z79.82 Long term (current) use of aspirin; Z87.891 Personal history of nicotine dependence; Z79.02 Long term (current) use of antithrombotics/antiplatelets; Z89.412 Acquired absence of left great toe; Z91.119 Patient's noncompliance with dietary regimen due to unspecified reason
CPT/HCPCS: 36415; 36569; 37228; 37232; 73630; 75716; 75774; 76937; 80048; 80053; 80202; 82565; 82947; 83036; 83605; 83735; 84520; 85025; 85610; 85651; 86140; 87040; 87070; 87071; 87075; 87077; 87147; 87186; 87205; 87426-QW; 88305; 88311; 90656; 97110; 97110-CQ; 97161; 97165; 97530; 97535; 99152; 99153; 99284-25; A9270; C1725; C1751; C1760; C1769; C1887; C1894; J0744; J1644; J1815; J2003; J2185; J2250; J2704; J2765; J3010; J3370; J7030; J7040; J7050; J7120; Q9967

== ENCOUNTER 2024-06-17 05:46 | Observation (INO) | payer OTHER ==
[~2024-06-17] VITALS: Ht 188 cm; Wt 94.1 kg
[~2024-06-17 05:46] MED LIST changes: +CIPR500 PO; +DULO30 PO; -DULOXETINE HCL60 M1 PO; +Fenofibrate134 MG PO; -GABA300 PO; +GABAPENTIN600 MG PO; +HUMULIN R100 UNIT/2 SC; +PRESERVISION A1 EAC1 PO; +VANCOMYCIN IV
[2024-06-17 06:20] LABS: BASOPHILS ABSOLUTE AUTO 0.12 K/mm3 (0.00-0.23); BASOPHILS PERCENT AUTO 1 % (0-2); EOSINOPHILS ABSOLUTE AUTO 0.92 K/mm3 (0.00-0.68); EOSINOPHILS PERCENT AUTO 11 % (0-6); Hemoglobin 11.2 g/dL (13.5-17.5); IMMATURE GRAN ABSOLUTE AUTO 0.04 K/mm3 (0.00-0.10); IMMATURE GRAN PERCENT AUTO 1 % (0-1); LYMPHOCYTES ABSOLUTE AUTO 2.11 K/mm3 (0.84-5.20); LYMPHOCYTES PERCENT AUTO 24 % (21-46); MONOCYTES ABSOLUTE AUTO 0.65 K/mm3 (0.16-1.47); MONOCYTES PERCENT AUTO 7 % (4-13); Mean Corpuscular Volume 88 fL (80-100); Mean Platelet Volume 11.1 fL (9.1-12.4); NEUTROPHILS ABSOLUTE AUTO 4.91 K/mm3 (1.96-9.15); NEUTROPHILS PERCENT AUTO 56 % (41-73); Platelet Count 264 K/mm3 (150-400); RDW Coefficient Variation 15.2 % (11.7-14.2); White Blood Cell Count 8.75 K/mm3 (4.00-11.30)
[2024-06-17 06:33] LABS: Albumin, Blood 3.2 g/dL (3.4-5.0); Albumin/Globulin Ratio 0.8 (0.8-1.8); Bilirubin, Total 0.3 mg/dL (0.1-1.0); Calcium, Blood 9.6 mg/dL (8.5-10.1); Creatinine, Blood 1.43 mg/dL (0.60-1.20); Globulin, Blood 3.9 g/dL (2.2-4.0); Potassium, Blood 4.1 mmol/L (3.5-5.5); Total Protein, Blood 7.1 g/dL (6.4-8.2)
[2024-06-17] MEDS ORDERED: Aspirin 325 MG Tab PO ONE (07:00)
[2024-06-17] MEDS ORDERED: NS 1,000 ML IV SCH ×2 (07:00→12:00)
[2024-06-17] MEDS ORDERED: FLU VACC TS2024-25(6MOS UP)/PF 45 MCG/0.5 ML SYRINGE IM PRN (09:30)
[2024-06-17] MEDS ORDERED: Prochlorperazine Edisylate 10 mg Vial IV PRN (09:35)
[2024-06-17 10:20] LABS: Vancomycin, Random 16.7 ug/mL
[2024-06-17] MEDS ORDERED: Vancomycin HCL 1,000 MG in NS 250 ML IV ONE (10:35)
[2024-06-17 15:00] VITALS: BP 135/58
[2024-06-17] MEDS ORDERED: Vitamin D1000 UNI1 PO (15:27)
[2024-06-17] MEDS ORDERED: ERGO400 PO (15:27)
[2024-06-17] MEDS ORDERED: JARDIANCE10 MG PO (15:28)
[2024-06-17] MEDS ORDERED: FENO145 PO (15:29)
[2024-06-17] MEDS ORDERED: INSULIN AS100 UNIT/8 SC (15:30)
[2024-06-17] MEDS ORDERED: INSULANI SC (15:31)
[2024-06-17] MEDS ORDERED: VISBIOME 112.51 EACH PO (15:32)
[2024-06-17] MEDS ORDERED: VANCOMYCIN HCL1 G1 IV (15:33)
[2024-06-17] MEDS ORDERED: SENNA LAXATIVE8.6 MG PO (15:34)
[2024-06-17 19:26] VITALS: BP 131/56
[2024-06-17] MEDS ORDERED: Hair, Skin & N1 EACH PO (19:31)
[2024-06-17] MEDS ORDERED: MICONAZOLE NIT130 GM TOP (19:34)
--- NOTE | 2024-06-17 20:02 | NUR ---
END OF SHIFT SUMMARY: A&Ox3. PLEASANT AND COOPERATIVE WITH CARE. ADVOCATE NEEDS EFFECTIVELY WHEN ASKED, BUT DOES NOT VOLUNTEER INFORMATION. CONTINENT OF BOWEL AND BLADDER. ATTEMPTS TO BE INDEPENDENT TO BATHROOM, BUT IS TO BE NWB LLE PER DAUGHTER. BSC PLACED AT BEDSIDE AND ASKED TO USE THIS. BED ALARM INITIATED. PATIENT ARRIVED TO FLOOR WITH LEFT LOWER EXTREMITY WRAPPED IN KERLIX AND TAPE WITH TUBING WRAPPED UP HIS LEG, HELD IN PLACE WITH COBAN. TUBE WAS CLAMPED AT THE END. DRESSING REMOVED AND YIELDED WOUND VAC SITE c TEGADERM AND BLACK FOAM IN PLACE OVER PLANTAR AND LATERAL FOOT WOUND. LARGE BANDAID OVER RIGHT THIRD TOE; REMOVED AND YIELDED SLOUGHING WOUND LATERAL SIDE OF RIGHT THIRD TOE. WOUNDS CLEANSED AND COVERED WITH FOAM DRESSINGS. ORDER OBTAINED FOR WOUND VAC TO BE PLACED. THIS RN UNABLE TO PLACE; CHARGE NOTIFIED TO ASK FOR ASSISTANCE DUE TO TIME LIMITATIONS. CRITICAL RECEIVED AT 1902 REGARDING CRITICAL TROPONIN OF 123, DOWN FROM 130 UPON ADMIT. PROVIDER NOTED IN H&P LIKELY R/T DEMAND ISCHEMIA. NIGHT NURSE PRESENT DURING TIME OF LAB NOTIFICATION. TELE RUNNING NSR. ORDERS OBTAINED FOR AC/HS BLOOD SUGAR CHECKS AND LOW SS INSULIN OBTAINED AND PLACED. BED IN LOWEST POSITION, CALL LIGHT WITHIN REACH, ALL NEEDS MET. REPORT TO ONCOMING NURSE.
[2024-06-17] MEDS ORDERED: Insulin Glargine-Yfgn 100 Unit/mL 3 ML SYR SC SCH (21:00)
[2024-06-17] MEDS ORDERED: Insulin Human Lispro 100 Units/ML 3ML Syringe SC SCH (21:00)
[2024-06-18 02:56] VITALS: BP 122/61
--- NOTE | 2024-06-18 03:08 | NUR ---
SHIFT SUMMARY 74 YR M ADMITTED ON 06/17/24. FULL CODE. WOUNDS ON LEFT FOOT CLEANED AND WOUND VAC APPLIED. PATIENT TOLERATED WELL. PT CONTINUES TO WANT TO GET UP ON HIS OWN TO USE THE BSC SO HE WAS EDUCATED ON THE IMPORTANCE OF ASKING FOR ASSISTANCE DUE TO WOUND VAC. HE STATES HE UNDERSTANDS BUT BED ALARM IS ACTIVATED FOR HIS SAFETY. NEW IV WAS PLACED IN RIGHT AC AFTER PT PULLED HIS FIRST ONE. HE APPEARS TO BE RESTING COMFORTABLY AT THIS TIME. CONT BIOX AT BEDSIDE AND O2 AND HR ARE WNL. BED IS IN LOW POSITION WITH ALARM ON AND CALL LIGHT IN REACH. WILL CONTINUE TO MONITOR.
[2024-06-18 04:50] LABS: Bun/Creatinine Ratio 28.3 (12.0-20.0); Calcium, Blood 9.3 mg/dL (8.5-10.1); Creatinine, Blood 1.45 mg/dL (0.60-1.20); Potassium, Blood 3.7 mmol/L (3.5-5.5)
[2024-06-18 07:38] VITALS: BP 127/69
[2024-06-18] MEDS ORDERED: DULoxetine HCL 60 MG Capsule DR PO SCH (09:00)
[2024-06-18] MEDS ORDERED: Fenofibrate, Micronized 134 MG Capsule PO SCH (09:00)
[2024-06-18] MEDS ORDERED: Losartan Potassium 50 MG Tab PO SCH (09:00)
[2024-06-18] MEDS ORDERED: Gabapentin 300 MG Cap PO SCH (09:00)
[2024-06-18] MEDS ORDERED: Empagliflozin 25 MG TAB PO SCH (09:00)
[2024-06-18] MEDS ORDERED: Enoxaparin 40 MG/0.4 ML SYR SC SCH (09:00)
--- NOTE | 2024-06-18 09:39 | NUR ---
ASSUMED CARE OF PATIENT AT SHIFT CHANGE. PATIENT SLEEPING. NO ACUTE NEEDS. WOUND VAC PATENT AND HOOKED TO SUCTION MACHINE AT FOOT OF BED. BiOx IN PLACE.
[2024-06-18] MEDS ORDERED: Vancomycin HCL 1,000 MG in NS 250 ML IV SCH (11:00)
--- NOTE | 2024-06-18 14:31 | NUR ---
CALL FROM PATIENT , WONDERING IF PT IS DCing TODAY. NO INDICATED HE IS TO BE RELEASED. WILL NOTIFY HER IF THIS IS NOT THE CASE. ASHWIN GRANT: [phone]
[2024-06-18 15:25] VITALS: BP 133/57
[2024-06-18] MEDS ORDERED: Lactated Ringer's 1,000 ML IV SCH (16:00)
--- NOTE | 2024-06-18 19:16 | NUR ---
END OF SHIFT SUMMARY: A&Ox3-4 WITH IMPAIRED COGNITION AND DECISION-MAKING. PLEASANT AND COOPERATIVE WITH CARE. DOES NOT UTILIZE CALL LIGHT, BUT IS ABLE TO ADVOCATE NEEDS WHEN STAFF IN ROOM. CONTINENT OF BOWEL AND BLADDER AND PIVOTS TO BSC AND USES URINAL NEEDED; NONAMBULATORY SECONDARY TO BILATERAL PEDAL WOUNDS. MEDS WHOLE WITH FLUIDS. NO COMPLAINTS OF ANY KIND THIS SHIFT. DISCHARGE ORDER PLACED BY DR YANCEY; PLANS TO DC BACK TO THE [facility] TOMORROW; TRANSPORTATION SET FOR 1100. WILL COORDINATE GETTING VANCOMYCIN PRIOR TO DC OR WITH [facility] TO BE ADMINISTERED THERE. DAUGHTER, LINDA, UPDATED, WELL. BED IN LOWEST POSITION, CALL LIGHT WITHIN REACH, ALL NEEDS MET. REPORT TO ONCOMING NURSE.
[2024-06-18 21:13] LABS: CORONAVIRUS COVID-19 AG Negative (NEGATIVE)
[2024-06-18 22:15] VITALS: BP 118/63
[2024-06-19 04:01] VITALS: BP 132/61
--- NOTE | 2024-06-19 05:29 | NUR ---
SHIFT SUMMARY PT A&O X3, CONFUSED AND FORGETFUL AT TIMES. IVF INFUSING PER ORDER, IV SITE CHANGED SECONDARY TO PT C/O OLD SITE BECOMING TENDER TO TOUCH. WOUND VAC INTACT TO LEFT FOOT WITH CONTINOUS SUCTION AT 120 mmHg PER ORDER. DRESSING TO RIGHT TOE INTACT. CONINUOUS PULSE OX IN PLACE WITH 02 SATS > 90% ON RA. TELE WITH SR, 1ST DEGREE AV-BLOCK, AND OCC PAC'S. PT ABLE TO TURN SELF IN BED. USING URINAL DURING THE NIGHT. PT SLEPT INTERMITTENTLY THROUGH THE NIGHT. BED IN LOWEST POSITION, CALL LIGHT WITHIN REACH, SIDERAILS UP X2, BED ALARM ON.
[2024-06-19 06:07] LABS: Calcium, Blood 9.4 mg/dL (8.5-10.1); Creatinine, Blood 1.36 mg/dL (0.60-1.20); Potassium, Blood 3.6 mmol/L (3.5-5.5)
[2024-06-19 07:32] VITALS: BP 146/63
--- NOTE | 2024-06-19 08:11 | NUR ---
PHARMACY WILL HAVE VANCO READY FOR ADMINISTRATION AT 1000 AND PT CAN HAVE TROUGH DRAWN AT [place] TOMORROW.
--- NOTE | 2024-06-19 09:35 | NUR ---
ASSUMED CARE OF PATIENT TODAY. LYING IN BED, WATCHING TV. WOUND VAC TO RIGHT FOOT, LR @ 125 IN LFA IV, CONTINUOUS BiOx IN PLACE. INITIAL CBG 61. GIVEN SNACK. 149 UPON RECHECK. 300mL URINE OUTPUT IN URINAL. NO ACUTE CONCERNS.
[2024-06-19 10:21] LABS: Vancomycin, Trough 16.6 ug/mL (5.0-10.0)
--- NOTE | 2024-06-19 10:53 | NUR ---
[facility] REPORT PLEASE CALL IRAM AT [place] FOR REPORT: [phone], EXT: [phone]
--- NOTE | 2024-06-19 11:09 | NUR ---
DISCHARGE SUMMARY: A&Ox3-4. PLEASANT AND COOPERATIVE WITH CARE. CALLS APPROPRIATELY AND IS ABLE TO ADVOCATE NEEDS EFFECTIVELY. LIMITED MOBILITY SECONDARY TO LEFT FOOT WOUNDS AND WOUND VAC PLACEMENT. CONTINENT OF BOWEL AND BLADDER. MEDS WHOLE WITH FLUIDS. TELE NSR c FHB AND PVCs @ 62. NO FURTHER SYNCOPAL EPISODES. WOUND VAC REMOVED PRIOR TO TRANSPORTATION. NO C/O PAIN OR DISCOMFORT. 1/2 BAG OF VANCO COMPLETED PRIOR OT DC. DC PACKET SENT WITH PATIENT. REPORT CALLED TO IRAM @ [facility]. LEFT FLOOR AT WITH ALL BELONGINGS AND DISCHARGE PACKET, ESCORTED BY [facility].
== END 2024-06-19 11:05 ==
LOC: ER 05:46 → ERHOLD 05:47 → MEDS 05:47
PROVIDERS: Internal Medicine; Student in an Organized Health Care Education/Training Program; ADMIT Internal Medicine
DX: R55 Syncope and collapse (principal); N17.9 Acute kidney failure, unspecified; R79.89 Other specified abnormal findings of blood chemistry; I25.10 Atherosclerotic heart disease of native coronary artery without angina pectoris; E11.69 Type 2 diabetes mellitus with other specified complication; M86.172 Other acute osteomyelitis, left ankle and foot; I12.9 Hypertensive chronic kidney disease with stage 1 through stage 4 chronic kidney disease, or unspecified chronic kidney disease; E11.22 Type 2 diabetes mellitus with diabetic chronic kidney disease; N18.30 Chronic kidney disease, stage 3 unspecified; E11.51 Type 2 diabetes mellitus with diabetic peripheral angiopathy without gangrene; K21.9 Gastro-esophageal reflux disease without esophagitis; F03.90 Unspecified dementia, unspecified severity, without behavioral disturbance, psychotic disturbance, mood disturbance, and anxiety; G47.33 Obstructive sleep apnea (adult) (pediatric); E78.5 Hyperlipidemia, unspecified; Z87.891 Personal history of nicotine dependence; Z79.4 Long term (current) use of insulin; Z79.84 Long term (current) use of oral hypoglycemic drugs; Z79.899 Other long term (current) drug therapy; Z88.0 Allergy status to penicillin; Z88.1 Allergy status to other antibiotic agents; Z88.2 Allergy status to sulfonamides; Z88.8 Allergy status to other drugs, medicaments and biological substances; Z89.422 Acquired absence of other left toe(s); Z89.412 Acquired absence of left great toe
CPT/HCPCS: 36415; 80048; 80053; 80202; 82947; 83880; 84484; 85025; 87426-QW; 93005; 93010; 94762; 96365; 96366; 96372; 96376; 99285-25; A9270; G0378; J1650; J1815; J3370; J7030; J7050; J7120

== ENCOUNTER 2024-07-02 06:18 | Day surgery (SDC) | payer OTHER ==
[~2024-07-02] VITALS: Ht 188 cm; Wt 92.5 kg
[~2024-07-02 06:18] MED LIST changes: +ERGO400 PO; +Hair, Skin & N1 EACH PO; +INSULIN AS100 UNIT/8 SC; +JARDIANCE10 MG PO; +MICONAZOLE NIT130 GM TOP; +SENNA LAXATIVE8.6 MG PO; +VANCOMYCIN HCL1 G1 IV; +Vitamin D1000 UNI1 PO
[2024-07-02] MEDS ORDERED: Lactated Ringer's 1,000 ML IV ONE (06:45)
[2024-07-02] MEDS ORDERED: Vancomycin HCL 1,000 MG in NS 250 ML IV SCH (06:50)
[2024-07-02] MEDS ORDERED: propofoL 20 ML IV ONE ×2 (06:51→07:34)
[2024-07-02] MEDS ORDERED: Ondansetron HCl 2 MG / ML 2ML Vial ONE (06:52)
[2024-07-02] MEDS ORDERED: Dexamethasone Sod Phos 10 MG/ML 1ML VIAL ONE (06:52)
[2024-07-02] MEDS ORDERED: Lidocaine HCl 2% 10 ML SDA ONE (06:58)
[2024-07-02] MEDS ORDERED: Ipratropium/Albuterol SulF 2.5-0.5MG/3 ML Amp ONE (07:09)
[2024-07-02] MEDS ORDERED: Insulin Regular 100 UNIT/ML 10ML Vial ONE (07:34)
[2024-07-02] MEDS ORDERED: Insulin Regular 100 UNIT/ML 10ML Vial SC ONE (07:40)
[2024-07-02] MEDS ORDERED: Bupivacaine 0.5% HCl 5 MG/ML 30MLVIAL INJ ONE (07:54)
--- NOTE | 2024-07-02 07:58 | NUR ---
07/02/24 0758 ELSA ESPINAL VANCOMYACIN STARTED PER ORDERS DUE TO PT PCN ALLERGY @9160 DR NEWMAN ORDERED INSULIN FOR PT TO BE GIVEN IN OR
[2024-07-02 08:25] VITALS: BP 152/74
--- NOTE | 2024-07-02 08:30 | NUR ---
07/02/24 0830 RUTH MAYBERRY WOUND VAC ATTACHED TO LEFT FOOT, ON WHEN ENTERED SDU. KEEPING PT IN BED PT USES A MOON LIFT DR NEWMAN DECLINES NEED FOR ANOTHER BLOOD GLUCOSE TO BE DRAWN.
== END 2024-07-02 09:34 | disposition home or self-care (01) ==
LOC: ORSCSDS 06:18
PROVIDERS: Student in an Organized Health Care Education/Training Program
PROC: 0Y6T0Z1 Detachment at Right 3rd Toe, High, Open Approach (ICD-10-PCS; principal; 2024-07-02 07:30)
DX: E11.621 Type 2 diabetes mellitus with foot ulcer (principal); M86.171 Other acute osteomyelitis, right ankle and foot; I12.9 Hypertensive chronic kidney disease with stage 1 through stage 4 chronic kidney disease, or unspecified chronic kidney disease; N18.30 Chronic kidney disease, stage 3 unspecified; E11.22 Type 2 diabetes mellitus with diabetic chronic kidney disease; I25.10 Atherosclerotic heart disease of native coronary artery without angina pectoris; E11.42 Type 2 diabetes mellitus with diabetic polyneuropathy; E11.51 Type 2 diabetes mellitus with diabetic peripheral angiopathy without gangrene; K21.9 Gastro-esophageal reflux disease without esophagitis; G47.33 Obstructive sleep apnea (adult) (pediatric); E78.5 Hyperlipidemia, unspecified; F03.90 Unspecified dementia, unspecified severity, without behavioral disturbance, psychotic disturbance, mood disturbance, and anxiety; Z79.85 Long-term (current) use of injectable non-insulin antidiabetic drugs; Z79.82 Long term (current) use of aspirin; Z79.02 Long term (current) use of antithrombotics/antiplatelets; Z79.899 Other long term (current) drug therapy
CPT/HCPCS: 82947; 88305; 88311; J1100; J1815; J2003; J2405; J2704; J3370; J7050

== ENCOUNTER 2024-09-30 15:00 | Inpatient (IN) | payer OTHER ==
[~2024-09-30] VITALS: Ht 188 cm; Wt 100.2 kg
[2024-09-30 15:51] LABS: BASOPHILS ABSOLUTE AUTO 0.07 K/mm3 (0.00-0.23); BASOPHILS PERCENT AUTO 1 % (0-2); EOSINOPHILS ABSOLUTE AUTO 0.03 K/mm3 (0.00-0.68); EOSINOPHILS PERCENT AUTO 0 % (0-6); Hematocrit 22.4 % (37.0-53.0); Hemoglobin 7.3 g/dL (13.5-17.5); IMMATURE GRAN ABSOLUTE AUTO 0.05 K/mm3 (0.00-0.10); IMMATURE GRAN PERCENT AUTO 1 % (0-1); LYMPHOCYTES ABSOLUTE AUTO 1.59 K/mm3 (0.84-5.20); LYMPHOCYTES PERCENT AUTO 14 % (21-46); MONOCYTES ABSOLUTE AUTO 1.05 K/mm3 (0.16-1.47); MONOCYTES PERCENT AUTO 10 % (4-13); Mean Corpuscular HGB 29.1 pg (26.0-34.0); Mean Corpuscular HGB Conc 32.6 g/dL (31.5-36.5); Mean Corpuscular Volume 89 fL (80-100); Mean Platelet Volume 10.8 fL (9.1-12.4); NEUTROPHILS ABSOLUTE AUTO 8.31 K/mm3 (1.96-9.15); NEUTROPHILS PERCENT AUTO 75 % (41-73); Platelet Count 215 K/mm3 (150-400); RDW Coefficient Variation 14.6 % (11.7-14.2); RDW Standard Deviation 47.5 fL (35.1-46.3); Red Blood Cell Count 2.51 M/mm3 (4.30-5.90)
[2024-09-30 16:22] LABS: Albumin, Blood 2.6 g/dL (3.4-5.0); Bilirubin, Total 0.3 mg/dL (0.1-1.0); Bun/Creatinine Ratio 54.6 (12.0-20.0); Calcium, Blood 9.1 mg/dL (8.5-10.1); Creatinine, Blood 1.74 mg/dL (0.60-1.20); Globulin, Blood 2.7 g/dL (2.2-4.0); Phosphorus, Blood 1.5 mg/dL (2.5-4.9); Potassium, Blood 4.9 mmol/L (3.5-5.5); Total Protein, Blood 5.3 g/dL (6.4-8.2)
[2024-09-30] MEDS ORDERED: Aspirin 325 MG Tab PO ONE (16:50)
[2024-09-30] MEDS ORDERED: NS 1,000 ML IV SCH ×2 (16:50→17:55)
[2024-09-30] MEDS ORDERED: Ondansetron HCl 2 MG / ML 2ML Vial IV PRN (17:55)
[2024-09-30] MEDS ORDERED: Sodium Phosphate 20 MM in Dextrose 5% 500 ML IV ONE (18:00)
[2024-09-30 18:16] LABS: Base Excess Venous -3.6 mmol/L; Bicarbonate Venous 21.6 mmol/L (24.0-30.0); PCO2 Venous 42.2 mmHg (38-42); pH Blood Venous 7.33 (7.34-7.37)
[2024-09-30 19:53] LABS: Percent Saturation 17.7 % (20.0-50.0)
[2024-09-30] MEDS ORDERED: NS 500 ML IV SCH (20:05)
[2024-09-30 20:19] VITALS: BP 132/60
[2024-09-30 20:33] LABS: Thyroid Stimulating Hormone 0.878 uIU/mL (0.360-4.800)
[2024-09-30] MEDS ORDERED: Heparin Sodium,Porcine 5,000 UNIT/0.5 ML SDV SC SCH (21:00)
[2024-09-30] MEDS ORDERED: Insulin Human Lispro 100 Units/ML 3ML Syringe SC SCH (21:00)
[2024-09-30] MEDS ORDERED: Insulin Glargine-Yfgn 100 Unit/mL 3 ML SYR SC SCH (21:15)
--- NOTE | 2024-09-30 21:15 | NUR ---
HOSPITALIST NOTIFIED PT BLOOD GLUCOSE 391, ORDERS GIVEN 4 UNITS SHORT ACTING PER SLIDING SCALE AND TO RESTART LANTUS 25 UNITS BEDTIME NOW.
[2024-09-30 23:15] VITALS: BP 120/60
[2024-09-30 23:46] VITALS: BP 137/61
[2024-10-01] VITALS (13 sets, daily range): BP systolic 117–155; BP diastolic 52–76
[2024-10-01 05:24] LABS: BASOPHILS ABSOLUTE AUTO 0.08 K/mm3 (0.00-0.23); BASOPHILS PERCENT AUTO 1 % (0-2); EOSINOPHILS ABSOLUTE AUTO 0.41 K/mm3 (0.00-0.68); EOSINOPHILS PERCENT AUTO 5 % (0-6); Hematocrit 22.8 % (37.0-53.0); Hemoglobin 7.7 g/dL (13.5-17.5); IMMATURE GRAN ABSOLUTE AUTO 0.03 K/mm3 (0.00-0.10); IMMATURE GRAN PERCENT AUTO 0 % (0-1); LYMPHOCYTES ABSOLUTE AUTO 2.16 K/mm3 (0.84-5.20); LYMPHOCYTES PERCENT AUTO 27 % (21-46); MONOCYTES ABSOLUTE AUTO 0.79 K/mm3 (0.16-1.47); MONOCYTES PERCENT AUTO 10 % (4-13); Mean Corpuscular HGB Conc 33.8 g/dL (31.5-36.5); Mean Corpuscular Volume 89 fL (80-100); Mean Platelet Volume 10.7 fL (9.1-12.4); NEUTROPHILS ABSOLUTE AUTO 4.42 K/mm3 (1.96-9.15); NEUTROPHILS PERCENT AUTO 56 % (41-73); Platelet Count 211 K/mm3 (150-400); RDW Coefficient Variation 14.6 % (11.7-14.2); Red Blood Cell Count 2.57 M/mm3 (4.30-5.90); White Blood Cell Count 7.89 K/mm3 (4.00-11.30)
--- NOTE | 2024-10-01 05:33 | NUR ---
SHIFT SUMMARY NOC PT A/O TO SELF, , AND FAMILY. PLEASANTLY CONFUSED BUT COOPERATIVE WITH CARE. VSS. ADMIT FROM ED [facility] ACUTE ON CHRONIC KIDNEY INJURY. PT HGB 7.3 AND 1 UNIT PRBC TRANSFUSED AND NOW 7.7. HS CBG 391 WITH 4 UNITS GIVEN PER SLIDING SCALE AND 25 UNITS GLARGINE PER EMAR. CRITICAL UPTREND TROPONIN 203 FROM 99, HOSPITALIST NOTIFIED AND NO FURTHER INTERVENTIONS TAKEN. PT ON TELE SINUS WITH 1DHB IN 80'S, RHYTHM STRIP REVIEWED AND AGREE WITH INTERPRETATION. NS INFUSING @ 100 ML/HR. ON CONTNUOUS BIOX SPO2 >92. PT REFUSED CPAP AND SIGNED REFUSAL SHEET WHICH IS IN CHART. PT FAMILY HAS CONCERNS ABOUT PT BARRETS ESOPHAGUS AND ARE REQUESTING FOR AND EGD TO BE DONE, DR HUNTER NOTIFIED OF REQUEST AND DOES NOT FEEL LIKE IT IS NECESSARY AT THIS TIME. PT CURRENTLY RESTING WITH BED ALARM ON, BED IN LOWEST POSITION, AND CALL LIGHT WITHIN REACH.
[2024-10-01] MEDS ORDERED: FENO48 PO (05:44)
[2024-10-01] MEDS ORDERED: PANT40 PO (05:45)
[2024-10-01] MEDS ORDERED: CLOP75 PO (05:48)
[2024-10-01] MEDS ORDERED: METF500 PO (05:49)
[2024-10-01 05:56] LABS: Albumin, Blood 2.6 g/dL (3.4-5.0); Albumin/Globulin Ratio 0.9 (0.8-1.8); Bilirubin, Total 0.3 mg/dL (0.1-1.0); Bun/Creatinine Ratio 58.3 (12.0-20.0); Calcium, Blood 9.1 mg/dL (8.5-10.1); Creatinine, Blood 1.56 mg/dL (0.60-1.20); Globulin, Blood 2.8 g/dL (2.2-4.0); Phosphorus, Blood 2.6 mg/dL (2.5-4.9); Potassium, Blood 3.6 mmol/L (3.5-5.5); Total Protein, Blood 5.4 g/dL (6.4-8.2)
[2024-10-01 06:25] LABS: RETICULOCYTE ABSOLUTE 0.0614 M/mm3 (0.0200-0.1100)
[2024-10-01] MEDS ORDERED: Sod Ferric Gluc Complx/Sucrose 125 MG in NS 100 ML IV SCH (07:03)
[2024-10-01] MEDS ORDERED: Fenofibrate 67 MG Cap PO SCH (12:00)
[2024-10-01] MEDS ORDERED: Aspirin 81 MG TabEC PO SCH (12:00)
[2024-10-01] MEDS ORDERED: Clopidogrel Bisulfate 300 MG TABLET PO ONE (12:00)
[2024-10-01 13:33] LABS: Source, Urine Clean Catch
[2024-10-01 13:58] LABS: Bilirubin, Urine Neg (Neg); Ketones, Urine Neg (Neg); Nitrite, Urine Neg (Neg); Urobilinogen, Urine NORM (Normal)
[2024-10-01 14:01] LABS: Appearance, Urine Clear (Clear); Color, Urine Pale Yellow (P-Yellow)
[2024-10-01 14:15] LABS: Blood, Urine Neg (Neg); Glucose Qualitative, Urine 2+ (Neg); Leukocyte Esterase, Urine Neg (Neg); Protein, Urine 1+ (Neg)
--- NOTE | 2024-10-01 17:32 | NUR ---
SHIFT SUMMARY PT IS A/OX3, CONFUSION TO DATE/TIME. PT IS IMPULSIVE AT TIMES, BED ALARM ON. PT SLEEPING FOR MUCH OF THIS SHIFT. PT RECIEVED 1 UNIT OF BLOOD THIS AFTERNOON. CRITICALLY HIGH TROPONINS, PT REMAIN ASYMPTOMATIC, REPORTS NO CHEST PAIN/PRESSURE/DISCOMFORT. PHYSICAN NOTIFIED. EKG OBTAINED, SEE CHART. USING URINAL AT BEDSIDE, REQUIRES ASSISTANCE. DAUGHTER AND AT BEDSIDE THIS EVENING.
[2024-10-02 02:28] VITALS: BP 130/69
--- NOTE | 2024-10-02 05:10 | NUR ---
SHIFT SUMMARY NOC PT A/O X 2-3. CONFUSED AND FORGETFUL AT TIMES, BUT COOPERATIVE WITH CARE. VSS. HS CBG 118 SHORT ACTING CNI, AND GLARGINE HELD. PT ON TELE SINUS RHYTHM/PAC/1DHB IN 90'S AND RHYTHM STRIP REVIEWED BY RN. PT HAS BEEN USING BEDSIDE URINAL INDEPDENTLY, BUT MISSES AT TIMES. PT RECEIVED 1 UNIT PRBC YESTERDAY FOR HGB 7.7. PT POSSIBLE D/C BACK TO [facility] IF MEDICALLY STABLE. PT CURRENTLY RESTING WITH BED ALARM ON, BED IN LOWEST POSITION, AND CALL LIGHT [facility].
[2024-10-02 06:15] LABS: BASOPHILS ABSOLUTE AUTO 0.08 K/mm3 (0.00-0.23); BASOPHILS PERCENT AUTO 1 % (0-2); EOSINOPHILS ABSOLUTE AUTO 0.51 K/mm3 (0.00-0.68); EOSINOPHILS PERCENT AUTO 7 % (0-6); Hematocrit 26.3 % (37.0-53.0); IMMATURE GRAN ABSOLUTE AUTO 0.04 K/mm3 (0.00-0.10); IMMATURE GRAN PERCENT AUTO 1 % (0-1); LYMPHOCYTES PERCENT AUTO 26 % (21-46); MONOCYTES ABSOLUTE AUTO 0.81 K/mm3 (0.16-1.47); MONOCYTES PERCENT AUTO 11 % (4-13); Mean Corpuscular HGB 29.4 pg (26.0-34.0); Mean Corpuscular HGB Conc 34.2 g/dL (31.5-36.5); Mean Corpuscular Volume 86 fL (80-100); Mean Platelet Volume 10.6 fL (9.1-12.4); NEUTROPHILS ABSOLUTE AUTO 3.92 K/mm3 (1.96-9.15); NEUTROPHILS PERCENT AUTO 54 % (41-73); Platelet Count 229 K/mm3 (150-400); RDW Coefficient Variation 15.2 % (11.7-14.2); RDW Standard Deviation 47.9 fL (35.1-46.3); Red Blood Cell Count 3.06 M/mm3 (4.30-5.90); White Blood Cell Count 7.26 K/mm3 (4.00-11.30)
[2024-10-02 06:36] LABS: Albumin, Blood 2.6 g/dL (3.4-5.0); Albumin/Globulin Ratio 0.9 (0.8-1.8); Bilirubin, Total 0.4 mg/dL (0.1-1.0); Bun/Creatinine Ratio 41.6 (12.0-20.0); Calcium, Blood 8.8 mg/dL (8.5-10.1); Creatinine, Blood 1.13 mg/dL (0.60-1.20); Potassium, Blood 3.5 mmol/L (3.5-5.5); Total Protein, Blood 5.6 g/dL (6.4-8.2)
[2024-10-02 07:34] VITALS: BP 137/70
[2024-10-02] MEDS ORDERED: Heparin Sodium,Porcine 5,000 UNIT/0.5 ML SDV SC SCH ×2 (08:00→09:00)
--- NOTE | 2024-10-02 08:02 | NUR ---
SPOKE WITH DR. RICHMOND IN PERSON, NOTIFIED HER OF TELE REPORT OF CHRONIC R ON T PVC'S EVERY 1-3 SECONDS THROUGHOUT THE NIGHT AND THIS MORNING.
[2024-10-02] MEDS ORDERED: Sennosides 8.6 MG Tab PO SCH (09:00)
[2024-10-02] MEDS ORDERED: DULoxetine HCL 60 MG Capsule DR PO SCH (09:00)
[2024-10-02] MEDS ORDERED: Clopidogrel Bisulfate 75 MG Tab PO SCH (09:00)
[2024-10-02] MEDS ORDERED: Gabapentin 300 MG Cap PO SCH (09:00)
[2024-10-02 11:53] LABS: CORONAVIRUS COVID-19 AG Negative (NEGATIVE)
[2024-10-02] MEDS ORDERED: FERSU300 PO (12:23)
--- NOTE | 2024-10-02 12:58 | NUR ---
DISCHARGE: PATIENT DISCHARGED TO HIS HOME FACILITY AT 1233. PATIENT PICKED UP BY AMBULANCE TRANSPORT WITH [facility]. THIS STUDENT NURSE CALLED TO GIVE REPORT TO IRAM, THE RN AT [facility]. INFORMED HER THAT PATIENT WAS STABLE AND HAPPY TO BE DISCHARGED AND HIS BLOOD SUGAR WAS 282 AT 1223 JUST PRIOR TO BEING TRANSPORTED AND HE HAD NOT YET EATEN LUNCH.
[2024-10-03] MEDS ORDERED: Pantoprazole Sodium 40 MG Tab PO SCH (06:00)
== END 2024-10-02 12:30 | DRG 682 ==
LOC: ER 15:00 → ERHOLD 15:01 → MEDS 15:01
PROVIDERS: Hospitalist; Nurse Practitioner Acute Care; Student in an Organized Health Care Education/Training Program; ADMIT Student in an Organized Health Care Education/Training Program
PROC: 30233N1 Transfusion of Nonautologous Red Blood Cells into Peripheral Vein, Percutaneous Approach (ICD-10-PCS; principal; 2024-09-30)
DX: N17.9 Acute kidney failure, unspecified (principal); I21.A1 Myocardial infarction type 2; D50.9 Iron deficiency anemia, unspecified; E78.5 Hyperlipidemia, unspecified; G47.33 Obstructive sleep apnea (adult) (pediatric); E11.22 Type 2 diabetes mellitus with diabetic chronic kidney disease; E11.51 Type 2 diabetes mellitus with diabetic peripheral angiopathy without gangrene; N18.30 Chronic kidney disease, stage 3 unspecified; I25.10 Atherosclerotic heart disease of native coronary artery without angina pectoris; E11.42 Type 2 diabetes mellitus with diabetic polyneuropathy; I12.9 Hypertensive chronic kidney disease with stage 1 through stage 4 chronic kidney disease, or unspecified chronic kidney disease; F03.C0 Unspecified dementia, severe, without behavioral disturbance, psychotic disturbance, mood disturbance, and anxiety; E11.65 Type 2 diabetes mellitus with hyperglycemia; K21.9 Gastro-esophageal reflux disease without esophagitis; E66.01 Morbid (severe) obesity due to excess calories; Z68.28 Body mass index [BMI] 28.0-28.9, adult; Z95.1 Presence of aortocoronary bypass graft; Z88.8 Allergy status to other drugs, medicaments and biological substances; Z88.1 Allergy status to other antibiotic agents; Z88.0 Allergy status to penicillin; Z88.2 Allergy status to sulfonamides; Z79.4 Long term (current) use of insulin; Z79.84 Long term (current) use of oral hypoglycemic drugs; Z89.412 Acquired absence of left great toe; Z89.411 Acquired absence of right great toe; Z89.422 Acquired absence of other left toe(s); Z87.891 Personal history of nicotine dependence
CPT/HCPCS: 36415; 36430; 76770; 80053; 82607; 82728; 82746; 82803; 82947; 83540; 83550; 83735; 83880; 84100; 84443; 84484; 85025; 85045; 86850; 86900; 86901; 86923; 87426-QW; 93005; 93010; 93306; 94762; 96375; 96376; 99284-25; A9270; G0378; J1644; J1815; J2916; J7030; J7040; J7060; P9016

== ENCOUNTER → 2024-12-21 | Outpatient (CLI) | payer SELFPAY ==
[~2024-12-21] MED LIST changes: +FENO48 PO; +FERSU300 PO; +PANT40 PO
== END | disposition home or self-care (01) ==
LOC: LAB SHORT 07:41 → LAB 07:41
DX: M86.672 Other chronic osteomyelitis, left ankle and foot (principal); E11.621 Type 2 diabetes mellitus with foot ulcer
CPT/HCPCS: 88305

== ENCOUNTER → 2024-12-21 | Outpatient (CLI) | payer SELFPAY | LOC: LAB 14:21 → LAB SHORT 14:21 | DX: E11.621 Type 2 diabetes mellitus with foot ulcer (principal); M86.9 Osteomyelitis, unspecified | CPT/HCPCS: 87071; 87075; 87205 ==

== ENCOUNTER 2025-01-09 00:38 | Observation (INO) | payer MEDICARE ==
[~2025-01-09] VITALS: Ht 188 cm; Wt 98.4 kg
[2025-01-09 01:13] LABS: BASOPHILS ABSOLUTE AUTO 0.09 K/mm3 (0.00-0.23); BASOPHILS PERCENT AUTO 1 % (0-2); EOSINOPHILS ABSOLUTE AUTO 0.57 K/mm3 (0.00-0.68); EOSINOPHILS PERCENT AUTO 6 % (0-6); Hematocrit 32.2 % (37.0-53.0); Hemoglobin 10.6 g/dL (13.5-17.5); IMMATURE GRAN ABSOLUTE AUTO 0.09 K/mm3 (0.00-0.10); IMMATURE GRAN PERCENT AUTO 1 % (0-1); LYMPHOCYTES ABSOLUTE AUTO 2.22 K/mm3 (0.84-5.20); LYMPHOCYTES PERCENT AUTO 24 % (21-46); MONOCYTES ABSOLUTE AUTO 0.57 K/mm3 (0.16-1.47); MONOCYTES PERCENT AUTO 6 % (4-13); Mean Corpuscular HGB Conc 32.9 g/dL (31.5-36.5); Mean Corpuscular Volume 87 fL (80-100); NEUTROPHILS ABSOLUTE AUTO 5.64 K/mm3 (1.96-9.15); NEUTROPHILS PERCENT AUTO 61 % (41-73); NRBC ABSOLUTE 0.00 K/mm3 (0.00-0.02); NRBC Auto 0.0 /100 WBC (0.0-0.2); Platelet Count 297 K/mm3 (150-400); RDW Coefficient Variation 13.6 % (11.7-14.2); RDW Standard Deviation 42.9 fL (35.1-46.3)
[2025-01-09 01:33] LABS: Alanine Aminotransfer (ALT/SGP 10.0 U/L (12-78); Albumin, Blood 2.9 g/dL (3.4-5.0); Albumin/Globulin Ratio 0.8 (0.8-1.8); Anion Gap 12.0 mmol/L (3-11); Aspartate Aminotrans (AST/SGOT 9.0 U/L (12-37); Bilirubin, Total 0.2 mg/dL (0.1-1.0); Blood Urea Nitrogen 50.0 mg/dL (8-24); CO2, Blood 22.0 mmol/L (21-32); Calcium, Blood 8.5 mg/dL (8.5-10.1); Chloride, Blood 106.0 mmol/L (98-108); Creatinine, Blood 2.63 mg/dL (0.60-1.20); Globulin, Blood 3.5 g/dL (2.2-4.0); Glucose, Blood 193.0 mg/dL (70-99); Potassium, Blood 4.4 mmol/L (3.5-5.5); Sodium, Blood 136.0 mmol/L (136-145); Total Protein, Blood 6.4 g/dL (6.4-8.2)
[2025-01-09] MEDS ORDERED: NS 500 ML IV ONE (04:00)
[2025-01-09 12:55] LABS: Anion Gap 9.0 mmol/L (3-11); Blood Urea Nitrogen 53.0 mg/dL (8-24); CO2, Blood 25.0 mmol/L (21-32); Calcium, Blood 8.8 mg/dL (8.5-10.1); Chloride, Blood 107.0 mmol/L (98-108); Creatinine, Blood 2.0 mg/dL (0.60-1.20); Glucose, Blood 204.0 mg/dL (70-99); Potassium, Blood 4.4 mmol/L (3.5-5.5); Sodium, Blood 137.0 mmol/L (136-145)
[2025-01-09 14:43] VITALS: BP 176/74
[2025-01-09] MEDS ORDERED: GABA300 PO ×2 (15:31→15:32)
[2025-01-09] MEDS ORDERED: METF500 PO (15:33)
[2025-01-09] MEDS ORDERED: Aspir 8181 MG PO (15:34)
[2025-01-09] MEDS ORDERED: ASCO500 PO (15:35)
[2025-01-09] MEDS ORDERED: LOSA50 PO (15:35)
[2025-01-09] MEDS ORDERED: AMLO10 PO (15:35)
[2025-01-09 15:47] LABS: Glucose, Blood 212 mg/dL (70-99)
[2025-01-09] MEDS ORDERED: Insulin Human Lispro 100 Units/ML 3ML Syringe SC SCH (16:30)
--- NOTE | 2025-01-09 16:54 | NUR ---
SHIFT SUMMARY PT AOX4, COOPERATIVE, ABLE TO MAKE NEEDS KNOWN. PT IS SBA. RUNNING TELE, SINUS RHYTHM 71BPM. TOLERATING MEDICATION. AWAITING FAMILY TO CALL TO COMPLETE MED REC. HERE FOR OBSERVATION. BED IN LOWEST POSITION, CALL LIGHT WITHIN REACH.
[2025-01-09 19:39] VITALS: BP 149/57
[2025-01-09] MEDS ORDERED: Insulin Glargine-Yfgn 100 Unit/mL 3 ML SYR SC SCH ×2 (21:00)
[2025-01-10 00:27] VITALS: BP 156/62
[2025-01-10 06:17] VITALS: BP 175/82
--- NOTE | 2025-01-10 06:42 | NUR ---
SHIFT SUMMARY: Pt is admitted for syncope and is a full code. Is alert and able to make needs known. ADLs have been SBA. denies pain or discomfort when asked. IVs to bilat ACs are patent with dressings that are CDI. leeroy noted sinus in the 70s with a 1st deg and PACs.
[2025-01-10 07:35] VITALS: BP 156/66
[2025-01-10 08:13] LABS: BASOPHILS ABSOLUTE AUTO 0.11 K/mm3 (0.00-0.23); BASOPHILS PERCENT AUTO 1 % (0-2); EOSINOPHILS ABSOLUTE AUTO 0.64 K/mm3 (0.00-0.68); EOSINOPHILS PERCENT AUTO 8 % (0-6); Hematocrit 37.0 % (37.0-53.0); Hemoglobin 12.1 g/dL (13.5-17.5); IMMATURE GRAN ABSOLUTE AUTO 0.06 K/mm3 (0.00-0.10); IMMATURE GRAN PERCENT AUTO 1 % (0-1); LYMPHOCYTES ABSOLUTE AUTO 2.15 K/mm3 (0.84-5.20); LYMPHOCYTES PERCENT AUTO 26 % (21-46); MONOCYTES ABSOLUTE AUTO 0.58 K/mm3 (0.16-1.47); MONOCYTES PERCENT AUTO 7 % (4-13); Mean Corpuscular HGB Conc 32.7 g/dL (31.5-36.5); Mean Corpuscular Volume 87 fL (80-100); NEUTROPHILS ABSOLUTE AUTO 4.76 K/mm3 (1.96-9.15); NEUTROPHILS PERCENT AUTO 57 % (41-73); NRBC ABSOLUTE 0.00 K/mm3 (0.00-0.02); NRBC Auto 0.0 /100 WBC (0.0-0.2); Platelet Count 308 K/mm3 (150-400); RDW Coefficient Variation 13.6 % (11.7-14.2); RDW Standard Deviation 43.0 fL (35.1-46.3)
[2025-01-10 08:53] LABS: Alanine Aminotransfer (ALT/SGP 11.0 U/L (12-78); Albumin, Blood 3.5 g/dL (3.4-5.0); Albumin/Globulin Ratio 1.0 (0.8-1.8); Anion Gap 5.0 mmol/L (3-11); Aspartate Aminotrans (AST/SGOT 7.0 U/L (12-37); Bilirubin, Total 0.3 mg/dL (0.1-1.0); Blood Urea Nitrogen 40.0 mg/dL (8-24); CO2, Blood 28.0 mmol/L (21-32); Calcium, Blood 9.6 mg/dL (8.5-10.1); Chloride, Blood 109.0 mmol/L (98-108); Creatinine, Blood 1.62 mg/dL (0.60-1.20); Globulin, Blood 3.5 g/dL (2.2-4.0); Glucose, Blood 112.0 mg/dL (70-99); Potassium, Blood 3.8 mmol/L (3.5-5.5); Sodium, Blood 138.0 mmol/L (136-145); Total Protein, Blood 7.0 g/dL (6.4-8.2)
[2025-01-10] MEDS ORDERED: Cholecalciferol 1000 Unit Tablet (=25MCG) PO SCH (09:00)
[2025-01-10] MEDS ORDERED: DULoxetine HCL 60 MG Capsule DR PO SCH (09:00)
[2025-01-10] MEDS ORDERED: Fenofibrate 67 MG Cap PO SCH (09:00)
[2025-01-10 11:53] VITALS: BP 173/67
--- NOTE | 2025-01-10 15:55 | NUR ---
DISCHARGE PT AOX4, COOPERATIVE, ABLE TO MAKE NEEDS KNONW. PT IS SBA TO BATHROOM FOR VOIDING. DOES HAVE INC EPISODES, USING PULL UP. ON ROOM AIR. WAS ON TELE, NO ACUTE EVENTS TOOK PLACE. IV DC'D BY OPENER [employer] WELL TELE. OPENER [employer] ASSISTED PT GETTING DRESSED. [employer]ENER [employer] AND CHARGE WHEELED PT AND PT FAMILY IN WC DOWN TO PT ENTRANCE. THIS RN WENT OVER DC PAPERWORK WITH PT AND FAMILY MEMBER.
== END 2025-01-10 15:30 | disposition home health service (06) ==
LOC: ER 00:38 → MEDS 00:39 → ERHOLD 00:39 → MEDS 14:50
PROVIDERS: Hospitalist; Student in an Organized Health Care Education/Training Program; ADMIT Student in an Organized Health Care Education/Training Program
DX: N17.9 Acute kidney failure, unspecified (principal); N18.30 Chronic kidney disease, stage 3 unspecified; I95.1 Orthostatic hypotension; D63.1 Anemia in chronic kidney disease; J44.9 Chronic obstructive pulmonary disease, unspecified; E11.22 Type 2 diabetes mellitus with diabetic chronic kidney disease; E11.42 Type 2 diabetes mellitus with diabetic polyneuropathy; E78.5 Hyperlipidemia, unspecified; I12.9 Hypertensive chronic kidney disease with stage 1 through stage 4 chronic kidney disease, or unspecified chronic kidney disease; I25.10 Atherosclerotic heart disease of native coronary artery without angina pectoris; G47.33 Obstructive sleep apnea (adult) (pediatric); Z95.1 Presence of aortocoronary bypass graft; Z88.0 Allergy status to penicillin; Z88.1 Allergy status to other antibiotic agents; Z88.2 Allergy status to sulfonamides; Z88.8 Allergy status to other drugs, medicaments and biological substances; Z79.4 Long term (current) use of insulin; Z79.02 Long term (current) use of antithrombotics/antiplatelets; Z79.82 Long term (current) use of aspirin; Z79.84 Long term (current) use of oral hypoglycemic drugs; Z79.899 Other long term (current) drug therapy
CPT/HCPCS: 36415; 70450; 71046; 80048; 80053; 82947; 83036; 84484; 85025; 93005; 93010; 97110; 97161; 99285-25; A9270; G0378; J1815; J7040